=== PATIENT | male | born 1980 | race Caucasian/White ===

== ENCOUNTER 2017-02-17 18:05 | Emergency (ER) | payer SELFPAY ==
[2017-02-17] MEDS ORDERED: fentaNYL-PF 50 mCg/mL 2 mL Inj ONE (18:06)
[2017-02-17] MEDS ORDERED: Ondansetron 2 mg/mL 2 mL Inj ONE (18:07)
[2017-02-17] MEDS ORDERED: 0.9% Sodium Chloride 1,000 ML IV ONE (18:12)
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
[2017-02-17] MEDS ORDERED: Ondansetron 2 mg/mL 2 mL Inj IVPUSH ONE ×2 (18:15→18:25)
[2017-02-17] MEDS ORDERED: TdaP Vaccine 0.5 mL Inj IM ONE (18:15)
[2017-02-17 18:25] LABS: BASOPHILS % (AUTO) 0.7 % (0-3); EOSINOPHILS % (AUTO) 3.1 % (0-5); MONOCYTES % (AUTO) 7.6 % (4-12); Mean Corpuscular Hemoglobin 29.7 pg (27.0-35.0); Mean Corpuscular Volume 89.6 fL (81-100); NEUTROPHILS % (AUTO) 57.3 % (40-74); Platelet Count 134 bil/L (150-400)
[2017-02-17] MEDS ORDERED: fentaNYL-PF 50 mCg/mL 2 mL Inj IVPUSH ONE (18:25)
[2017-02-17 18:41] LABS: INR 1.09 ratio
[2017-02-17] MEDS: HYDROmorphone 1 mg/mL Inj IVPUSH PRN ×2 (18:44→19:16)
--- NOTE | 2017-02-17 18:51 | DRSVH ---
PROCEDURE: X-RAY RIGHT SHOULDER, MINIMUM TWO VIEWS ([id number]) INDICATIONS: pain TECHNIQUE: 3 views of the shoulder were acquired. COMPARISON: None. FINDINGS: Bones: No fractures or dislocations. No suspicious bony lesions. Visualized ribs appear intact. Soft tissues: No suspicious soft tissue calcifications. IMPRESSION: No fracture. No osseous lesion. If there are persistent symptoms or clinical suspicion f or pathology, then repeat radiographs or advanced imaging (CT, MRI or bone scan) should be considered for further evaluation. Dictated by: Yolanda Arita MD, PhD on 02/17/2017 at 18:49 Approved by: Yolanda Arita MD, PhD on 02/17/2017 at 18:50
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
--- NOTE | 2017-02-17 18:53 | DRSVH ---
PROCEDURE: X-RAY PELVIS, ONE OR TWO VIEWS ([id number]) INDICATIONS: trauma TECHNIQUE: One view(s) of the pelvis acquired. COMPARISON: None. FINDINGS: Bones: No fractures or dislocations. No suspicious bony lesions. Mild bilateral hip osteoarthritis noted. Soft tissues: Visualized bowel gas pattern is normal. No suspicious soft tissue calcifications. IMPRESSION: No fracture. No acute osseous lesion. If there are persistent symptoms or clinical suspi cion for pathology, then repeat radiographs or advanced imaging (CT, MRI or bone scan) should be cons idered for further evaluation. Dictated by: Yolanda Arita MD, PhD on 02/17/2017 at 18:51 Approved by: Yolanda Arita MD, PhD on 02/17/2017 at 18:51
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
[2017-02-17] MEDS ORDERED: Lactated Ringer's 1,000 ML IV SCH (19:37)
[2017-02-17] MEDS ORDERED: Ondansetron 2 mg/mL 2 mL Inj IVPUSH PRN (19:40)
--- NOTE | 2017-02-17 19:42 | DRSVH ---
PROCEDURE: CT CHEST, ABDOMEN AND PELVIS WITH CONTRAST ([id number]) INDICATIONS: trauma TECHNIQUE: After the administration of intravenous contrast, 5 mm thick sections acquired from the lung apices t o the symphysis. 5 mm thick coronal and sagittal reformats were acquired. Additional 7 mm thick cor onal maximum intensity projection (MIP) reformats acquired through the lungs. Optional 10-minute del ayed imaging may be performed from the kidneys to the bladder. For radiation dose reduction, the fol lowing was used: automated exposure control, adjustment of mA and/or kV according to patient size. COMPARISON: None. FINDINGS: Image quality: Excellent. CHEST: Lungs: No pulmonary contusions or lacerations. Atelectasis noted in the dependent portions of the reji ngs. No pneumothorax or hemothorax. Central and peripheral airways appear patent and normal in nikolai sharita. Mediastinum: No mediastinal hematomas. Heart size is normal. No pericardial effusion. Thoracic ao rta and pulmonary arteries demonstrate normal size and enhancement. No mediastinal or hilar adenopat hy. Esophagus is normal in caliber. No hiatal hernia. Chest wall: No rib fractures. No subcutaneous emphysema. No axillary or supraclavicular adenopathy . Thyroid gland is within normal limits where visualized. ABDOMEN: Solid organs: Liver and spleen are normal in enhancement, without lacerations. Pain and liver are en larged. Recanalization of the umbilical vein is noted suggestive of portal hypertension.. Gallbladd er is within normal limits. Biliary system is non-dilated. Pancreas enhances normally, without keen section. No adrenal hematomas. Both kidneys enhance normally, without hydronephrosis or lacerations . Peritoneum and bowel: Inflammatory changes noted in the fat adjacent to the celiac axis, the proxima l superior mesenteric artery and along the paracolic recesses of uncertain etiology. No free fluid o r air. Mildly dilated loops of proximal small bowel are noted to measure up to 3.7 cm in diameter. T here is circumferential wall thickening involving the duodenum which could be due to nondistention ve rsus posttraumatic injury. Nodes and vessels: No retroperitoneal or mesenteric adenopathy. Aorta and inferior vena cava are no rmal in size and enhancement. Miscellaneous: No ventral hernias. PELVIS: Genitourinary: Bladder wall thickness is normal. Miscellaneous: No inguinal hernias or adenopathy. Bones: Pelvic ring and hip joints appear intact. No vertebral compression fractures. Spine degener ative disease and facet arthropathy are noted. Left SI joint osteoarthritis noted. IMPRESSION: 1. Mild nonspecific inflammatory changes in the retroperitoneum all of the celiac and superior mesen teric arteries and extending along the paracolic gutter fascia bilaterally. 2. Mild dilatation of proximal loops of small bowel which could be related to ileus versus partial s mall bowel obstruction including partial small bowel obstruction related to bowel injury. 3. Mild circumferential wall thickening involving the second and third portions of duodenum. Trauma tic bowel injury cannot be excluded. 4. Hepatosplenomegaly with recanalization of the umbilical vein and superficial venous varices sugge stive of portal venous hypertension. 5. Findings telephoned to Dr. Aidan Dsouza on 02/17/2017 at 1937 hrs. Dictated by: Yolanda Arita MD, PhD on 02/17/2017 at 19:22 Approved by: Yolanda Arita MD, PhD on 02/17/2017 at 19:40
[2017-02-17] MEDS ORDERED: IBUP800T28 PO (20:28)
[2017-02-17 22:01] VITALS: BP 139/65; PULSE 94; RESP 14; O2SAT 96
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
== END 2017-02-17 22:04 | disposition home or self-care (01) ==
LOC: SED 18:05
DX: S00.03XA Contusion of scalp, initial encounter (principal); S30.811A Abrasion of abdominal wall, initial encounter; S40.211A Abrasion of right shoulder, initial encounter; S50.311A Abrasion of right elbow, initial encounter; S30.0XXA Contusion of lower back and pelvis, initial encounter; V58.6XXA Passenger in pick-up truck or van injured in noncollision transport accident in traffic accident, initial encounter; Y92.410 Unspecified street and highway as the place of occurrence of the external cause; Y93.89 Activity, other specified; Y99.8 Other external cause status; F10.220 Alcohol dependence with intoxication, uncomplicated; Y90.8 Blood alcohol level of 240 mg/100 ml or more; Z23 Encounter for immunization
CPT/HCPCS: 36415; 70450; 71010; 71260; 72125; 72170; 73030; 74177; 80053; 81002; 85025; 85610; 85730; 86850; 90471; 90715; 96361; 96374; 96375; 96376; 99285; G0480; J1170; J2405; J3010; J7030; J7120; Q9967

== ENCOUNTER 2017-05-19 07:10 | Inpatient (IN) | payer OTHER ==
[2017-05-19] VITALS (12 sets, daily range): BP systolic 100–158; BP diastolic 36–76; PULSE 98–113; RESP 16–20; O2SAT 99–100
[~2017-05-19] VITALS: Ht 182.9 cm; Wt 113.4 kg
[~2017-05-19 07:10] MED LIST: IBUP800T28 PO
[2017-05-19] MEDS ORDERED: 0.9% Sodium Chloride 1,000 ML IV ONE ×4 (07:30→16:45)
[2017-05-19] MEDS ORDERED: Pantoprazole 4 mg/mL 10 mL Inj IVPUSH ONE (07:30)
--- NOTE | 2017-05-19 07:30 | ED.REPORT ---
HPI-General Illness Date of Service May 19, 2017 ED Provider: Sarthak Sesay Patient is a 37 year old male with a hx of EtOH abuse who presents to the ED via EMS s/p his called reporting LOC. When medics arrived, he was unresponsive, had O2 sats from 77-80, and was covered in black vomit and feces. He was intubated and his sats josiah to the low 90's but has be consistently hypotensive. Per , he drinks half to a full fifth of whiskey daily. He may have taken 2 klonopin this morning and may have had a fever a few days ago for which he was taking Ibuprofen and Tylenol. No other history available upon initial evaluation secondary to his condition and being intubated. Nursing Notes Stated Complaint: GI BLEED Nursing Notes Reviewed: Yes Allergies: Coded Allergies: No Known Drug Allergies (Verified Allergy, Unknown, 02/17/17) Scheduled PRN Ibuprofen (Ibuprofen) 800 Mg Tablet 800 MG PO BID PRN PRN For Pain General Time Seen by MD: 07:29 Chief Complaint Other (LOC ) Hx Obtained From: Other family..., EMS Unable to Obtain Hx: Patient condition, Mental status Arrived By: Ambulance Context Related History: Reports Drug use/abuse suspected (EtOH ) Past Medical History Past Medical History Notes: History obtained from chart review the EMS, otherwise unable to obtain secondary to patient condition. Past Medical History Alcohol abuse Past Surgical History Unknown Smoking History Unknown if Ever Smoker Social History Alcohol Use: >5 per day Ambulatory Status Independent Unable to Obtain History Past medical history, Past surgical history, Family history, Smoking history, Social history, Occupation, Ambulatory status Review of Systems Unable to Obtain ROS Patient condition, Intubated Physical Exam Nursing note and vitals reviewed. Constitutional: Well-developed, well-nourished. Middle aged male. Intubated. Head: Normocephalic and atraumatic. Mouth/Throat: Mucous membranes dry. Endotracheal tube in place. Eyes: Unable to assess EOM. Pupils are 5mm and minimally responsive. Neck: Supple, no tracheal deviation. Cardiovascular: Tachycardic, regular rhythm. Poor peripheral perfusion, diminished DP/PT pulses bilaterally, good central pules. Pulmonary/Chest: Intubated, breath sounds present bilaterally but L diminished compared to R. Abdominal: Soft. No distension. Cannot appreciate any tenderness, though examination limited secondary to patient's condition. Bowel sounds present. Musculoskeletal: Not moving any extremities spontaneously. No obvious injuries. Neurological: GCS 3T, not responding to any stimuli whatsoever. Muscle tone normal. Not posturing. Skin: Pale, cool, and dry. Some scaling, which appears to be a chronic rash, on bilateral lower extremities. Psychiatric: Unable to assess secondary to patient condition Vital Signs Vital Signs Date Time Temp Pulse Resp B/P Pulse Ox O2 Delivery O2 Flow Rate FiO2 05/19/17 08:47 100 Please see vitals sheet for full details. HR 111, 157/82, Temp 37, RR 20. Sats 100%. Initial VS: Reviewed Interpretation & Diagnostics Lab Results Interpretation Result Diagram: 05/19/17 1400 05/19/17 0725 Test 05/19/17 07:25 05/19/17 08:32 05/19/17 08:55 Neutrophils (%) (Auto) 70.9% (40-74) Lymphocytes (%) (Auto) 20.7% (14-46) Monocytes (%) (Auto) 7.0% (4-12) Eosinophils (%) (Auto) 0.1% (0-5) Basophils (%) (Auto) 0.1% (0-3) Activated Partial Thromboplast Time 31.5sec (22.8-33.0) Fibrinogen 151mg/dL (157-380) Sodium Level 132mEq/L (134-144) Potassium Level 4.7mEq/L (3.5-5.2) Chloride Level 80mEq/L (97-108) Carbon Dioxide Level 12mmol/L (18-29) Blood Urea Nitrogen 59mg/dL (6-20) Creatinine 2.17mg/dL (0.76-1.27) Estimat Glomerular Filtration Rate 36mL/min (>59) Glucose Level 198mg/dL (60-99) Calcium Level 9.2mg/dL (8.5-10.1) Magnesium Level 1.5mg/dL (1.6-2.6) Total Bilirubin 2.3mg/dL (0.0-1.2) Aspartate Amino Transf (AST/SGOT) 336U/L (0-50) Alanine Aminotransferase (ALT/SGPT) 83U/L (0-44) Alkaline Phosphatase 104U/L (25-150) Troponin T 0.010ug/L (0.0-0.011) Total Protein 6.3g/dL (6.4-8.4) Albumin 3.3g/dL (3.4-5.0) Urine Color Yellow (YELLOW) Urine Appearance Cloudy (CLEAR,HAZY) Urine pH 5.0 (5.0-8.0) Urine Specific [place] 1.025 (1.003-1.035) Urine Protein 100mg/dL (NEG,TRACE) Urine Glucose (UA) Negativemg/dL (NEGATIVE) Urine Ketones 15mg/dL (NEGATIVE) Urine Occult Blood Moderate (NEGATIVE) Urine Nitrite Negative (NEGATIVE) Urine Bilirubin Small (NEGATIVE) Urine Ictotest Pos (Negative) Urine Urobilinogen 2.0mg/dL (NORMAL) Urine Leukocyte Esterase Negative (NEGATIVE) Urine RBC 3-10/hpf (0-2) Urine WBC 0-5/hpf (0-5) Urine Epithelial Cells Occasional/hpf (NONE-MOD) Urine Crystals Amorphous urates (NONE Urine Bacteria Few/hpf (NONE-FEW) Urine Hyaline Casts Occasional/lpf (NONE) Urine Granular Casts None seen (NONE SEEN) Urine Waxy Casts None seen (NONE SEEN) Urine Red Blood Cell Casts None seen (NONE SEEN) Urine White Blood Cell Casts None seen (NONE SEEN) Urine Mucus Present (None Seen) Urine Trichomonas None seen (NONE SEEN) Urine Yeast None (NONE SEEN) Urinalysis Comment None Urine Culture Reflexed Not indicated Hold Purple Top Tube Received (Received) Hold [place] Top Tube Received (Received) ECG Interpretation ECG Interpretation: Sinus tachycardia, rate 110 Time: 09:49 Interpreted by: ED physician ABG Interpretation ABG Interpretation: pH 7.278 pCO2 31 pO2 82.0 cHCO3- 14.5 Exam Performed by: [facility] pract Exam Interpreted by: ED physician X-Ray Chest Interpretation Chest Xray Interpretation: IMPRESSION: Ne ET tube tip in expected position. Dictated by: Kwame De La Torre M.D. on 05/19/2017 at 8:48 Approved by: Kwame De La Torre M.D. on 05/19/2017 at 8:49 View: Portable, 1 view Interpretation / Wet Read by: Interpret - Radiologist CT Head Interpretation IMPRESSION: No CT evidence of acute intracranial pathology. Dictated by: Kwame De La Torre M.D. on 05/19/2017 at 8:59 Approved by: Kwame De La Torre M.D. on 05/19/2017 at 9:02 Study: Head CT no contrast Interpretation / Wet Read by: Interpret - Radiologist CT Abd / Pelvis Interpretation IMPRESSION: 1. Worsening hepatosplenomegaly and worsening portal hypertension, in this patient with prior evidence of portal hypertension during CT scanning 02/17/17. No ascites is found, however, and no definite malignancy is identified. 2. A colonic mass or other source of GI bleeding is not identified. However, given the portal hypertension present bleeding varicosities would be a likely potential source. 3. The liver is prominently heterogeneous, in a pattern suggestive of significant interval worsening of fatty infiltration, with an unusual multinodular pattern of what appears to be fatty infiltration in several portions of the liver. Underlying acute hepatitis may be superimposed. The likelihood of malignancy as cause of this appearance is considered low but remains possible (yet unlikely). Dictated by: Salty Daniel M.D. on 05/19/2017 at 9:08 Approved by: Salty Daniel M.D. on 05/19/2017 at 9:18 Study type: Abdominal CT IV contrast Interpretation / Wet Read by: Interpret - Radiologist Re-Eval/Medical Decision Med Decision/Clinical Course In summary, 37-year-old male with a suspected history of alcohol abuse per EMS and chart review presenting to the ED for evaluation after being found minimally responsive and covered in dark emesis. Obvious concern for GI bleed, however unknown source at this time. Concern for esophageal varices given his known history of alcohol abuse, however could be another intra-abdominal source. He has also been retching and esophageal rupture is a possibility, however bedside chest x-ray does not demonstrate findings consistent with this. Pupils sluggish, however unclear the relationship between this and recent administration of paralytic. Head CT negative for acute bleed. Upon patient's arrival, mass transfusion protocol initiated. Multiple large-bore IVs were obtained and resuscitation with packed red blood cells, FFP, and platelets started. Initial laboratory studies notable for hemoglobin of 5.1, hematocrit of 16.2, platelets of 99, sodium of 132, chloride of 80, anion gap of 40, creatinine of 2.17, BUN 59, magnesium 1.5, bilirubin 2.3, AST 336, ALT 83, troponin negative, white blood cell count of 20.8, INR 2.01, fibrinogen 151. CT of the patient's abdomen and pelvis was obtained and demonstrated worsening hepatosplenomegaly and worsening portal hypertension, with no obvious source of GI bleeding; rest of read as per above. Upon patient's arrival, GI consulted as per below; appreciate recommendations. After discussion with GI, decision made to admit the patient and take him directly to the endoscopy suite for attempted direct visualization of bleeding. Discussed with the critical care also discussed with the critical care team, who will admit the patient after endoscopy for further management and evaluation. Time of Eval: 07:51 Re-Evaluation/Progress Note: Rechecked pt to assess proper sedation. He is now opening his eyes upon verbal command. Time of Eval: 08:12 Re-Evaluation/Progress Note: Rechecked pt. His color is beginning to return. Time of Eval: 08:48 Re-Evaluation/Progress Note: Rechecked pt who is improving. Anesthesia in room. Discussed plan for admission. Patient is informed. Consultation #1: Referral / Consult Name: Stef Shin MD Call Returned at: 07:37 Note: Discussed pt's case with GI. Will come in to see pt later. Consultation #2: Referral / Consult Name: Stef Shin MD Call Returned at: 08:15 Note: Discussed pt's case with GI to give more information. Is en route to see pt. Consultation #3: Referral / Consult Name: Stef Shin MD Call Returned at: 08:25 Note: Discussed pt's case after GI evaluated pt. Consultation #4: Referral / Consult Name: Malachi Jolly MD Consulted With: Hospitalist Call Returned at: 09:32 Manager Analysis: Will see patient, Agrees with eval, Agrees with plan, Accepts admit Note: Discussed pt's case. Accepts admit. Discharge & Departure Primary Impression: GI bleed GI bleed type/associated pathology: unspecified gastrointestinal hemorrhage type Qualified Code: K92.2 - Gastrointestinal hemorrhage, unspecified Additional Impressions: Acute kidney injury Acute blood loss anemia Transaminitis High anion gap metabolic acidosis Disposition: ADMITTED TO HOSPITAL Discharge Condition All VS Reviewed: Yes Condition: Critical Referrals: NOPCP (PCP) Crit Care Except Billable Proc Time Spent: 135-164 minutes Services Performed: Patient management by me, Time spent at bedside, Reviewing test results, Reviewing imaging, Discussing patient care, Documentation in record, Time with fam/surrogate Critical Care Notes: Please see MDM. Scribe Attestation Portions of this note were transcribed by Consuelo Beebe. Dr. Lázaro Modi personally performed the history, physical exam and medical decision-making; I reviewed and confirmed the accuracy of the information in the transcribed note. Signed by: Doroteo Varela, 05/19/17 Sarthak Sesay MD May 19, 2017 07:30 CONSUELO BEEBE May 19, 2017 07:43 Consultation #1: Referral / Consult Name: Stef Shin MD Call Returned at: 07:37 Note: Discussed pt's case with GI. Will come in to see pt later. Consultation #2: Referral / Consult Name: Stef Shin MD Call Returned at: 08:15 Note: Discussed pt's case with GI to give more information. Is en route to see pt. Consultation #3: Referral / Consult Name: Stef Shin MD Call Returned at: 08:25 Note: Discussed pt's case after GI evaluated pt. Consultation #4: Referral / Consult Name: Malachi Jolly MD Consulted With: Hospitalist Call Returned at: 09:32 Manager Analysis: Will see patient, Agrees with eval, Agrees with plan, Accepts admit Note: Discussed pt's case. Accepts admit. Counseled Regarding: Diagnosis, Lab results, Need for admission Discharge & Departure Primary Impression: GI bleed GI bleed type/associated pathology: unspecified gastrointestinal hemorrhage type Qualified Code: K92.2 - Gastrointestinal hemorrhage, unspecified Additional Impressions: Acute kidney injury Acute blood loss anemia Transaminitis High anion gap metabolic acidosis Disposition: ADMITTED TO HOSPITAL Discharge Condition All VS Reviewed: Yes Condition: Stable Referrals: NOPCP (PCP) Crit Care Except Billable Proc Time Spent: 135-164 minutes Services Performed: Patient management by me, Time spent at bedside, Reviewing test results, Reviewing imaging, Discussing patient care, Documentation in record, Time with fam/surrogate Scribe Attestation Portions of this note were transcribed by Consuelo Beebe. Dr. Lázaro Modi personally performed the history, physical exam and medical decision-making; I reviewed and confirmed the accuracy of the information in the transcribed note. Signed by: Doroteo Varela, 05/19/17 Sarthak Sesay MD May 19, 2017 07:30 CONSUELO BEEBE May 19, 2017 07:43
[2017-05-19 07:43] LABS: BASOPHILS % (AUTO) 0.1 % (0-3); EOSINOPHILS % (AUTO) 0.1 % (0-5); Mean Corpuscular Hemoglobin 28.2 pg (27.0-35.0); Mean Corpuscular Volume 89.5 fL (81-100); NEUTROPHILS % (AUTO) 70.9 % (40-74); Platelet Count 99 bil/L (150-400)
[2017-05-19] MEDS ORDERED: Ketamine 100 mg/mL 5 mL Inj IV ONE ×2 (07:45→08:10)
[2017-05-19] MEDS ORDERED: Ketamine 10 mg/mL 20 mL Inj ONE (07:46)
[2017-05-19 07:49] LABS: INR 2.01 ratio
[2017-05-19] MEDS ORDERED: Octreotide 500 mCg/100 mL NS IV SCH ×2 (07:50)
--- NOTE | 2017-05-19 07:52 | ABG ---
DateTimeAnalyzed 07:41:26 -_ pH ____7.278 - 7.350 7.450 pCO2 ___30.9__ -mmHg 35.0 45.0 pO2 ___82.0__ -mmHg 69.0 116 HCO3- ___14.5__ -mmol/L 22.0 26.0 ABE __-11.3__ -mmol/L -2.0 2.0 tHb ____5.0__ -g/dL 12.0 18.0 O2Hb ___49.2__ -% COHb ____2.1__ -% 0.0 1.5 MetHb ____0.3__ -% 0.4 1.5 sO2 ___50.4__ -% FIO2 __100.0__ -% PRVC 16 - PEEP ____5.0__ -cmH2O Set_RR 16 -b/min Vt __600.0__ -L Drawn By MM - Date/Time Notified____ 07:51:00 -_ Spontaneous_RR 22 -b/min Oxygen Device 1 VENTILATOR - Notified By MM - Notified Whom DR NASH - K+ ____4.3__ -mmol/L 3.5 5.0 tO2 ____3.6__ -Vol% Malachi test N/A -
[2017-05-19 07:53] LABS: Mean Corpuscular Hemoglobin 27.6 pg (27.0-35.0)
[2017-05-19 07:54] LABS: BASOPHILS % (AUTO) 0.1 % (0-3); EOSINOPHILS % (AUTO) 0 % (0-5); MONOCYTES % (AUTO) 8.6 % (4-12); Platelet Count 100 bil/L (150-400)
[2017-05-19] MEDS ORDERED: fentaNYL-PF 50 mCg/mL 2 mL Inj ONE ×2 (07:55→11:03)
[2017-05-19] MEDS ORDERED: fentaNYL-PF 50 mCg/mL 2 mL Inj IVPUSH ONE (08:10)
[2017-05-19 08:28] LABS: Magnesium 1.5 mg/dL (1.6-2.6); TROPONIN T 0.01 ug/L (0.0-0.011)
--- NOTE | 2017-05-19 08:51 | DRSVH ---
PROCEDURE: X-RAY CHEST ONE VIEW, PORTABLE ([id number]) INDICATIONS: gi bleed, unresponsive TECHNIQUE: One view of the chest was acquired. COMPARISON: [facility], CR, XR CHEST 1VW (PORTABLE), 02/17/2017, 18:11. FINDINGS: Surgical changes and devices: Interval intubation with ET tube tip 5 CM above the ag. Lungs and pleura: No pleural effusions or pneumothorax. Lungs are clear. Mediastinum: Mediastinal contours appear normal. Heart size is normal. Bones and chest wall: No suspicious bony lesions. Overlying soft tissues appear unremarkable. IMPRESSION: Ne ET tube tip in expected position. Dictated by: Kwame De La Torre M.D. on 05/19/2017 at 8:48 Approved by: Kwame De La Torre M.D. on 05/19/2017 at 8:49
--- NOTE | 2017-05-19 09:03 | DRSVH ---
PROCEDURE: CT BRAIN WITHOUT CONTRAST ([id number]) INDICATIONS: unresponsive, pupils sluggish TECHNIQUE: Noncontrast 4.5 mm thick angled axial sections acquired from the foramen magnum to the vertex, with c oronal reformats. COMPARISON: [facility], CT, CT BRAIN WO CON, 02/17/2017, 18:47. FINDINGS: Image quality: Excellent. CSF spaces: Basal cisterns are patent. No extra-axial fluid collections. Ventricles are normal in size and shape. Brain: No midline shift. No intracranial masses or hemorrhage. Allan-white matter interface is norm al. Skull and face: Calvarium and visualized facial bones are intact, without suspicious lesions. Sinuses: Visualized sinuses and mastoids are clear. IMPRESSION: No CT evidence of acute intracranial pathology. Dictated by: Kwame De La Torre M.D. on 05/19/2017 at 8:59 Approved by: Kwame De La Torre M.D. on 05/19/2017 at 9:02
[2017-05-19 09:04] LABS: COLOR,URINE YELLOW (YELLOW)
[2017-05-19 09:05] LABS: APPEARANCE,URINE CLOUDY (CLEAR,HAZY); OCCULT BLOOD,URINE MODERATE (NEGATIVE)
[2017-05-19 09:06] LABS: ICTOTEST,URINE POS (Negative)
--- NOTE | 2017-05-19 09:19 | DRSVH ---
PROCEDURE: CT ABDOMEN AND PELVIS WITH CONTRAST ([id number]) INDICATIONS: gi bleed unresponsive TECHNIQUE: After the administration of intravenous contrast, 5 mm thick sections acquired from the diaphragm to the symphysis. 5 mm coronal and sagittal reformats were acquired. For radiation dose reduction, the following was used: automated exposure control, adjustment of mA and/or kV according to patient siz e. COMPARISON: [facility], CT, CT CHEST ABD PELVIS W CON, 02/17/2017, 18:47. FINDINGS: Image quality: Excellent. ABDOMEN: Lung bases: Lung bases are clear except for bibasilar atelectasis. Heart size is normal. Solid organs: Liver and spleen are abnormal in size and enhancement. With reference to the prior CT scan from 02/17/17 both the liver and spleen had a further enlarged, with a craniocaudad length of th e spleen now up to 14.6 cm versus 13.7 cm previously and measured in the same area. The global enlar gement of the liver has progressed, and the hepatic enhancement is prominently heterogeneous, with a pattern considered more likely to represent progression of prominent fatty infiltration. However, th ere are areas of patchy nodular low attenuation that conceivably could represent superimposed metasta tic disease or diffuse hepatic neoplasm (but this is considered to be much less likely than an unusua l appearance of heterogeneous fatty infiltration). Portal hypertension appears to have worsened between the 2 studies, with the distended periumbilical vein tracking inferiorly to the posterior margin of the umbilicus, with these varicosities further en larged from the comparison study. For example, in an area where the enlarged paraumbilical vein had measured 8 mm it now measures 12 mm. Additional further enlargement of varices in the retroperitoneu m and along the body wall anteriorly is evident. However, only a slight amount of free fluid is foun d. Gallbladder does not show evidence of internal calcified gallstones. Biliary system is non dilated. Pancreas enhances normally but there is a small amount of nearby mild stranding in the retroperitone al fat potentially a manifestation of associated pancreatitis. No adrenal nodules. Kidneys demonstr ate normal size and enhancement, without hydronephrosis. Peritoneum and bowel: Bowel loops demonstrate normal wall thickness and caliber. No free fluid or a ir. Nodes and vessels: No retroperitoneal or mesenteric adenopathy by size criteria. Aorta and inferior vena cava are normal in size. Miscellaneous: No ventral hernias. PELVIS: Genitourinary: Bladder wall thickness is normal. A Scott catheter largely empties the bladder lumen . Miscellaneous: No inguinal hernias or adenopathy. Enlarged varicosities within the anterior body wa ll and peritoneal space as was seen within the abdomen more superiorly. Bones: No suspicious bony lesions. No vertebral body compression fractures. IMPRESSION: 1. Worsening hepatosplenomegaly and worsening portal hypertension, in this patient with prior eviden ce of portal hypertension during CT scanning 02/17/17. No ascites is found, however, and no definite malignancy is identified. 2. A colonic mass or other source of GI bleeding is not identified. However, given the portal hyper tension present bleeding varicosities would be a likely potential source. 3. The liver is prominently heterogeneous, in a pattern suggestive of significant interval worsening of fatty infiltration, with an unusual multinodular pattern of what appears to be fatty infiltration in several portions of the liver. Underlying acute hepatitis may be superimposed. The likelihood o f malignancy as cause of this appearance is considered low but remains possible (yet unlikely). Dictated by: Salty Daniel M.D. on 05/19/2017 at 9:08 Approved by: Salty Daniel M.D. on 05/19/2017 at 9:18
[2017-05-19] MEDS ORDERED: cefTRIAXone Inj 2,000 MG in Dextrose 5% Minibag Plus 50 ML IV ONE (09:35)
--- NOTE | 2017-05-19 09:48 | PCM.HPANE ---
Patient Data Date of Service: May 19, 2017 Surgeon Admitting Provider: Attending Provider: Primary Care Physician:Nopcp Other Provider: Reason for Visit Gi Bleed Ht/WT & BMI Height (Feet): 6 Height (Inches): 4 Body Mass Index Allergies Coded Allergies: No Known Drug Allergies (Verified Allergy, Unknown, 02/17/17) Diabetes History Hx Diabetes?: No MRSA MRSA: No Medications Hypertension Medication: No Home Meds Incl Beta Deo: No Reported Medications Ibuprofen 800 Mg [id number] Mg PO BID PRN For Pain 02/17/17 History History of ENT Problems?: No Denture Type: None Teeth Condition: Within Normal Limits Hx of Heart Problems?: No Cardiovascular History: Denies:: Coronary Artery Disease Hx of Respiratory Problem?: No Hx Neurologic Problems?: No Gastrointestinal History: Positive for:: Gastrointestinal Bleeding (active, acute) Liver Disease (acute transaminitis) Hx of Problems?: No Hx Musculoskeletal Problems?: No Hx Any Other Health Problems?: Yes (EtOH intoxicatoin) History Blood Transfusions: Positive for:: Blood Transfusions (massive transfusion protocol this am for severe, acute GI bleed) Hx Diabetes: No Hx Alcohol Use: Yes (5th of whiskey qd) Smoking Status: Current Every Day Smoker (1/2 ppd) Have You Smoked inLast 12 mo: YesApprox How Many Cigarettes/day: 5-10 Stop/Bang Treated for Sleep Apnea?: No Do You Have a CPAP Machine?: No VALENTIN Risk Assessment: Low Risk, <3 Yes Risk Assessment Category Category 1A: Patient has history of documented sleep apnea, and HAS NOT received any narcotic, sedative or anesthesia administration during this stay. Category 1B: Patient has history of documented sleep apnea, and HAS received any narcotic , sedative or anesthesia administration during this stay Category 2: Patient has SUSPECTED Obstructive Sleep Apnea, and HAS received any narcotic , sedative or anesthesia administration during this stay. Category 3: Patient has SUSPECTED Obstructive Sleep Apnea and HAS NOT received narcotic, sedative or anesthesia administration during this stay. Category 4: Outpatient in Procedural Areas with known sleep apnea or who screen positive for High Risk via the STOP/BANG questionnaire. Additional Information intubated, unable to assess Exam Exam Vital Signs Vital Signs Date Time Temp Pulse Resp B/P Pulse Ox O2 Delivery O2 Flow Rate FiO2 05/19/17 08:47 100 General Appearance: Other (intubated in ED, sedated) HEENT/AIRWAY: Other (intubated, 8.0 ETT, 26cm at teeth) Meds/Labs/Diagnostics Labs Test 05/19/17 07:25 05/19/17 08:32 05/19/17 08:55 White Blood Count 20.8th/mm3 (3.8-10.1) Red Blood Count 1.81mil/mm3 (4.40-5.80) Hemoglobin 5.1g/dL (13.8-17.2) Hematocrit 16.2% (41.0-50.0) Mean Corpuscular Volume 89.5fL (81-100) Mean Corpuscular Hemoglobin 28.2pg (27.0-35.0) Mean Corpuscular Hemoglobin Concent 31.5% (32.0-37.0) Red Cell Distribution Width 20.4% (12.3-15.4) Platelet Count 99bil/L (150-400) Neutrophils (%) (Auto) 70.9% (40-74) Lymphocytes (%) (Auto) 20.7% (14-46) Monocytes (%) (Auto) 7.0% (4-12) Eosinophils (%) (Auto) 0.1% (0-5) Basophils (%) (Auto) 0.1% (0-3) Prothrombin Time 21.8sec (8.1-12.5) Prothromb Time International Ratio 2.01ratio Activated Partial Thromboplast Time 31.5sec (22.8-33.0) Fibrinogen 151mg/dL (157-380) Sodium Level 132mEq/L (134-144) Potassium Level 4.7mEq/L (3.5-5.2) Chloride Level 80mEq/L (97-108) Carbon Dioxide Level 12mmol/L (18-29) Blood Urea Nitrogen 59mg/dL (6-20) Creatinine 2.17mg/dL (0.76-1.27) Estimat Glomerular Filtration Rate 36mL/min (>59) Glucose Level 198mg/dL (60-99) Calcium Level 9.2mg/dL (8.5-10.1) Magnesium Level 1.5mg/dL (1.6-2.6) Total Bilirubin 2.3mg/dL (0.0-1.2) Aspartate Amino Transf (AST/SGOT) 336U/L (0-50) Alanine Aminotransferase (ALT/SGPT) 83U/L (0-44) Alkaline Phosphatase 104U/L (25-150) Troponin T 0.010ug/L (0.0-0.011) Total Protein 6.3g/dL (6.4-8.4) Albumin 3.3g/dL (3.4-5.0) Urine Color Yellow (YELLOW) Urine Appearance Cloudy (CLEAR,HAZY) Urine pH 5.0 (5.0-8.0) Urine Specific [place] 1.025 (1.003-1.035) Urine Protein 100mg/dL (NEG,TRACE) Urine Glucose (UA) Negativemg/dL (NEGATIVE) Urine Ketones 15mg/dL (NEGATIVE) Urine Occult Blood Moderate (NEGATIVE) Urine Nitrite Negative (NEGATIVE) Urine Bilirubin Small (NEGATIVE) Urine Ictotest Pos (Negative) Urine Urobilinogen 2.0mg/dL (NORMAL) Urine Leukocyte Esterase Negative (NEGATIVE) Urine RBC 3-10/hpf (0-2) Urine WBC 0-5/hpf (0-5) Urine Epithelial Cells Occasional/hpf (NONE-MOD) Urine Crystals Amorphous urates (NONE Urine Bacteria Few/hpf (NONE-FEW) Urine Hyaline Casts Occasional/lpf (NONE) Urine Granular Casts None seen (NONE SEEN) Urine Waxy Casts None seen (NONE SEEN) Urine Red Blood Cell Casts None seen (NONE SEEN) Urine White Blood Cell Casts None seen (NONE SEEN) Urine Mucus Present (None Seen) Urine Trichomonas None seen (NONE SEEN) Urine Yeast None (NONE SEEN) Urinalysis Comment None Urine Culture Reflexed Not indicated Plan Impression Patient chart reviewed, patient interviewed and anesthestic plan with risks, benefits, and alternatives discussed, and informed consent obtained. NPO per Anesth. Guidelines: No (n/a. intubated, emergency) ASA Physical Status: ASA3 Plus Emergency Anesthetic Plan: GA Bene/Risks/Altern/Consents: Yes HP Complete Prior to Induction: Yes Rene Manzano DO May 19, 2017 09:48
[2017-05-19 10:52] LABS: Mean Corpuscular Hemoglobin 28.3 pg (27.0-35.0); Mean Corpuscular Volume 85.9 fL (81-100)
[2017-05-19] MEDS ORDERED: Rocuronium 10 mg/mL 5 mL Inj ONE ×2 (11:03→11:13)
[2017-05-19] MEDS ORDERED: Phenylephrine/NS 100 mCg/mL 10 mL Syringe IVPUSH ONE (11:03)
[2017-05-19] MEDS ORDERED: Propofol 10,000 mCg/mL 20 mL Inj ONE (11:03)
[2017-05-19] MEDS ORDERED: Succinylcholine Chloride 20 mg/mL 5 mL Inj ONE (11:13)
[2017-05-19] MEDS ORDERED: Alum-Mag Hydrox-Simeth 30 mL Suspension PO PRN (11:30)
[2017-05-19] MEDS ORDERED: Polyethylene Glycol (PEG) 17 Gm Powder PO PRN (11:30)
[2017-05-19] MEDS ORDERED: Ondansetron 2 mg/mL 2 mL Inj IVPUSH PRN (11:30)
[2017-05-19] MEDS ORDERED: Senna-Docusate 8.6-50 mg Tablet PO PRN (11:30)
[2017-05-19] MEDS ORDERED: Pantoprazole Inj 80 MG in 0.9% Sodium Chloride 100 ML IV ONE (11:40)
[2017-05-19] MEDS ORDERED: Octreotide Inj 500 MCG in 0.9% Sodium Chloride 99 ML IV SCH (11:40)
[2017-05-19] MEDS ORDERED: Pantoprazole Inj 80 MG in 0.9% Sodium Chloride 80 ML IV SCH (11:40)
--- NOTE | 2017-05-19 11:59 | PCM.HPMED ---
Subjective Date of Service May 19, 2017 Primary Provider: Admitting Physician: Malachi Jolly MD Primary Care Physician: Nopcp Attending Physician: Stef Shin MD Chief Complaint: GI bleed History of Present Illness: 37 year old male with hx of alcohol abuse presented to the ED via EMS after being found down, covered in black/red vomit and stool by his this morning. Pt regularly drinks 1/2 to a fifth of whiskey daily and reportedly has been for some time. There is very little information available and [facility] is similarly unhelpful. He does have a script for Ibuprofen. In any case, when EMS arrived they reported that the patient was hypotensive and sats were in the upper 70's. Due to hypoxia the patient was intubated in the field.on presentation to the ED the patient remained obtunded and hemoglobin returned at 5. He also looked dehydrated. He was transfused 5units PRBC's, 2 units FFP, and [address] Shin was contacted for emergent endoscopy. The patient was taken to the OR for the procedure and Dr. Shin reports that he identified dieulafoy in the proximal body of the stomach. Pt was also started on protonix and octreotide. He was admitted to the ICU intubated and sedated on propofol. No fentanyl at this time. Versed was initially attempted in the ED/OR but ineffective Review of Systems: A complete review of systems unable to be performed due to patient sedation Allergies Coded Allergies: No Known Drug Allergies (Verified Allergy, Unknown, 02/17/17) Home Medications Ibuprofen (Ibuprofen) 800 Mg Tablet 800 MG PO BID PRN PRN For Pain PMH Alcohol abuse Surgical History Unable to obtain due to sedation Family History Unable to obtain due to sedation Social History Hx Alcohol Use: Yes (5th of whiskey qd) Smoking Status: Current Every Day Smoker (1/2 ppd) Exam Vital Signs Vital Sign - Last Date Time Temp Pulse Resp B/P Pulse Ox O2 Delivery O2 Flow Rate FiO2 05/19/17 08:47 100 Exam General: Sedated but responsive to voice HEENT: Pupils equal and reactive, no tracking, opens eyes on command, thyroid normal, neck brace in place Lymph: No lymphadenopathy Cardio: Regular rhythm, tachycardia, no murmurs Respiratory: Intubated, CTA bilaterally Abdomen: Mildly distended but soft abdomen, with positive bowel sounds Extremity: Large red rash on the right lower extremity with the appearance of ringworm; Similar smaller rashes on her left leg; no edema Psych: Sedated Neuro: Sedated Skin: Rashes above Lab and Diagnostics Result Diagram: 05/19/17 1035 05/19/17 0725 X-Rays, CTs and MRIs Chest x-ray IMPRESSION: New ET tube tip in expected position. Dictated by: Kawme De La Torre M.D. on 05/19/2017 at 8:[address] 1. Worsening hepatosplenomegaly and worsening portal hypertension, in this patient with prior evidence of portal hypertension during CT scanning 02/17/17. No ascites is found, however, and no definite malignancy is identified. 2. A colonic mass or other source of GI bleeding is not identified. However, given the portal hypertension present bleeding varicosities would be a likely potential source. 3. The liver is prominently heterogeneous, in a pattern suggestive of significant interval worsening of fatty infiltration, with an unusual multinodular pattern of what appears to be fatty infiltration in several portions of the liver. Underlying acute hepatitis may be superimposed. The likelihood of malignancy as cause of this appearance is considered low but remains possible (yet unlikely). Dictated by: Salty Daniel M.D. on 05/19/2017 at 9:[address] IMPRESSION: No CT evidence of acute intracranial pathology. Dictated by: Kwame De La Torre M.D. on 05/19/2017 at 8:59 12-lead ECG Sinus tach at [address] changes. Assessment & Plan 37 year old male with hx of alcohol abuse and ibuprofen abuse who presented obtunded to the ED from home after being found down, hypoxic, and covered in black/red emesis. Acute hypoxic respiratory failure; POA; ongoing -Likely due to alcohol and acute blood loss causing syncope -Ventilated and managed by pulmonology Severe Acute GI bleed; POA; ongoing -Patient found down with red/black emesis and stool -Hx of severe Etoh abuse and NSAIDs -Hgb was 5 on admission -Octreotide and protonix drips -No NG at this time -Emergent endoscopy with injection of possible dieulafoy in the proximal body of the stomach -H/H q6 until tomorrow morning -transfuse below 7 Acute kidney injury; POA; ongoing -Likely due to acute blood loss and dehydration leading to prerenal azotemia -CK elevated but less than 1000 -aggressive hydration Severe anion gap metabolic acidosis; POA; ongoing -Elevated lactic acidosis with TAMMIE -Fluids -Trend lactate Alcoholic hepatitis with cirrhosis; POA; ongoing -Elevated transaminases and alcoholic pattern and prolonged PT on admission -Small ascites and portal hypertension on CT with history of alcohol dependence -CIWA ordered -Thiamine 300 mg now and 200 daily starting tomorrow -Full evaluation of sequelae negative Hyperglycemia; POA; ongoing -No history of diabetes blood sugars 190+; questionable if due to stress reaction -Regular 6 units Q8 Alcohol dependence; POA; ongoing -Reportedly drinks half to a full fifth foreskin a day -Ray taken two Klonopin this morning as well -Thiamine 300 mg now and 200 daily starting tomorrow Disposition: Patient is being admitted to inpatient status with expected length of stay greater than two midnights due to to severity of presentation, duration of treatment, and risks of adverse events disposition Full code Pain Evaluation: Adequate Pain Control GI Prophylaxis: Proton Pump Inhibitor (GGT) VTE Prophylaxis Indicated: Contraindicated Resuscitation Status: CPR: Attempt Resuscitation Time spent 60 minutes Attending Statement The patient was seen and examined together with on May 19 and I agree with the history, exam findings, and plan as outlined in the note above. I did participate in all aspects of the services provided today, including documentation and the plan of care. The patient will remain intubated tonight for airway protection. We will follow the hematocrit carefully and transfuse as needed to maintain a hematocrit of over 21. The patient will be placed on a Versed drip if he becomes agitated consistent with alcohol withdrawal. Deniz Mccollum DO May 19, 2017 11:59 Malachi Jolly MD May 20, 2017 15:50
[2017-05-19] MEDS: Pantoprazole 8 mg/Hr Infusion IV SCH ×4 (12:04→16:19)
[2017-05-19] MEDS ORDERED: Thiamine Inj 300 MG in Dextrose 5% 50 ML IV ONE (12:10)
[2017-05-19] MEDS: 0.9% Sodium Chloride 1,000 ML IV SCH ×3 (12:17→23:13)
[2017-05-19] MEDS: Propofol Inj 1,000,000 MCG in IV Premix 1 EACH IV PRN ×2 (12:18→15:54)
--- NOTE | 2017-05-19 12:32 | ABG ---
DateTimeAnalyzed 12:25:00 -_ pH ____7.426 - 7.350 7.450 pCO2 ___45.2__ -mmHg 35.0 45.0 pO2 ___29.7__ -mmHg 69.0 116 HCO3- ___29.2__ -mmol/L 22.0 26.0 ABE ____4.8__ -mmol/L -2.0 2.0 tHb ____8.3__ -g/dL 12.0 18.0 O2Hb ___54.2__ -% COHb ____1.3__ -% 0.0 1.5 MetHb ____0.9__ -% 0.4 1.5 sO2 ___55.4__ -% 25.0 FIO2 __100.0__ -% PEEP ____5.0__ -cmH2O Set_RR ___16.0__ -b/min Vt __600.0__ -L Drawn By as - Date/Time Notified____ 12:31:00 -_ Spontaneous_RR ___16.0__ -b/min Oxygen Device 1 VENTILATOR - Notified By ams - Notified Whom dr Parimi - B 761 -mmHg tO2 ____6.3__ -Vol% Malachi test _Positive -
--- NOTE | 2017-05-19 12:52 | PCM.CHPMED ---
Subjective Date of Service: May 19, 2017 Provider requesting consult: Malachi Jolly MD Primary Physician: Admitting Physician: Malachi Jolly MD Primary Care Physician: Nopcp Attending Physician: Stef Shin MD Admit Status: From the Emergency Department Chief Complaint: Chief Complaint: Acute GI bleed, and loss of consciousness History of Present Illness: Pulmonology and critical care consult note: Reason for consult: Intubated and sedated ICU patient. Requesting physician: Malachi Babcock M.D., Deniz Vega DO History obtained from current hospital records and [facility] as patient is intubated and stopped unable to give history Mr. Frank is a 37-year-old male with past medical history of alcohol abuse ( drinks 1/2 to full fifth of whiskey daily), as well as severe bilateral lower extremity tinea corporis , and no other chronic medical conditions [facility] record. Patient has no outside PCP according to the [facility] record. Patient has history of Ibuprofen, and Tylenol use as well as history of a prior shoulder strain in July 2014. History is limited secondary to lack of family member present and sedated/ intubated patient. Patient presented to the ED via EMS secondary after being found down by his . When EMS arrived on scene patient was reportedly unresponsive, with oxygen sats 77-80. The patient was per one report covered in black vomit and feces, and per another covered in red bloody vomit. Patient was intubated on scene and his oxygen saturation quickly recovered, however patient remained hypotensive. Patient reportedly may have consumed up to 2 Klonopin this morning as well. In the ED: There was concern for active GI bleed given H/H of 02/14, and he was transfused 5 units PRBC's. He was reportedly conscious in interacting to verbal commands with ED staph. Vital signs showed patient's tachycardic 111, blood pressure 158/72 with a map of 100, pulse ox 100% on 100% oxygen. The patient's hemogram showed the patient was severely and likely acutely anemic with H&H of 5.10/17 Patient then received 5 units of packed RBCs, 2 units of FFP and 2 units of platelets. Patient's repeat H&H showed a hemoglobin of 8/24.3. Patient had a leukocytosis of 20.2 with normal differential. Platelet count was 40, and is now 89 on most recent lab. Coagulation studies include PT 21.8, INR 2.01, APTT 31.5, fibrinogen 151 UA was significant for moderate amount of occult blood, positive Ictotest, and uric crystals with few bacteria. CT of the brain: No CT evidence of acute intracranial pathology. CT abdomen and pelvis: Showed worsening hepatosplenomegaly and worsening portal hypertension, with prior evidence of portal hypertension from CT scan 2016. No ascites were found, and no definitive evidence of malignancy. No colonic or GI mass seen. No bleeding varicosities. Findings consistent with worsening fatty liver, with possibility of superimposed acute hepatitis. GI Dr. Shin was consulted by the ED physician secondary to acute blood loss anemia requiing mass transfution protocol and hx of ETOH abuse. The patient was taken immediately for upper endoscopy which showed dieulafoy lesion of the gastric body that was activly bleeding and required epinephrine injection. No signs of esophageal varices were present on endoscopy. No masses were reportedly seen. Patient was placed on IV pantoprazole, and octreotide. Patient presently is in the ICU intubated and sedated on propofol. Review of Systems: Complete review of systems was not performed secondary to sedated and intubated patient. PMH Past Medical History EtOH abuse with averaging 1/2 to a full fifth of whiskey per day History of tinea corporis History shoulder strain Surgical History Unable to obtain intubated and sedated patient Allergies: Coded Allergies: No Known Drug Allergies (Verified Allergy, Unknown, 02/17/17) Family History Family History No family members present to obtain family history and patient is intubated and sedated Social History Hx Alcohol Use: Yes (5th of whiskey qd) Smoking Status: Current Every Day Smoker (1/2 ppd) Living Arrangement: with Family (lives with ) Exam Vital Signs Vital Sign - Last Date Time Temp Pulse Resp B/P Pulse Ox O2 Delivery O2 Flow Rate FiO2 05/19/17 11:25 111 158/72 100 100 General: Other Additional Information: General: Patient is intubated and sedated, lying in bed, Scott catheter in place , HEENT: Head NC/AT, eyes: Anisocoria with left greater than right 5 mm on the left and 4 mm on the right, pupils are reactive to light, nares, oral airway intubated, mucous membranes moist, neck, no adenopathy, no JVD, no masses, Chest: Lungs CTAB, no admission adventitious lung sounds, good air movement, Heart: Regular rate and rhythm without murmur Abdomen: Appears protuberant, with evidence of portal hypertension secondary to mild caput medusa, bowel sounds present, Extremities: Lower extremities bilaterally with large diffuse anterior rash system with severe tinea corporis Skin: Rash as previously stated, warm dry and intact, Neurologic: Intubated and sedated Psychiatric: Intubated and sedated Lab and Diagnostics Result Diagram: 05/19/17 1035 05/19/17 0725 Assessment & Plan Assessment This is a 37-year-old male with history of EtOH abuse drinks one half to a full fifth of whiskey per day, who was found down by his , covered in bloody vomit, and was intubated and subsequently admitted for acute upper GI bleed with severe anemia H&H 02/14 requiring massive transfusion 5 U packed RBCs, 2 units FFP, and 2 units of platelets. Patient was found to have the dieulafoy lesion of the gastric body status post upper endoscopy. # Current intubated and sedated On Propofol drip Venous blood gas 05/19/2017 12:35 was pH 7.426, PCO@ 45.2, PO2 29.7, HCO3 29.2, FIO2 100, PEEP 5.0, Vt 600 # Acute loss of consciousness, present on admission, active Head CT with no evidence of acute intracranial process Loss of consciousness likely secondary to massive acute GI blood loss # GI bleed, acute, severe, present on admission, active H/ in the ED, status post mass transfusion 5 U PRBCs, 2 U and 2 units platelets. INR 2.01, Fibrinogen 151 Repete H&H, 05/25, platelets [address] Shin GI which showed a gastric body dieulafoy lesion, no evidence of esophageal varices or esophageal/gastric mass. Continue pantoprazole drip Continue octreotide drip Ceftriaxone for SBP prophylaxis We will avoid anticoagulant medication given GI bleed DVT prophylaxis with pneumatic compression devices Continue to monitor with serial H/H Vitamin K 10 mg once We will transfuse blood as needed, transfusion threshold if hemoglobin less than 7. # Lactic Acidosis present on admission. active likely secondary to acute GI bleed Lactic 4.8 IV normal saline at 200 hr # Elevated Creatinine Kinase. present on admission, active CK of 810 IV fluid with NS at 200 for now and repeat CK and lactic # Thrombocytopenia on present admission, active Likely multifactorial given patient's history of EtOH abuse and alcoholic hepatic steatosis, as well as massive GI bleed Status post trans-fusion 2 units platelets Current platelets 80 Continue to monitor platelets with serial CBC as above and transfuse as appropriate # Hyponatremia, present on admission, active - Relpete Na with NS as above # EtOH abuse present admission, active Thiamine, folate replacement Monitor electrolytes, and replete as needed Midazolam drip for agitation and seizure prophylaxis # Leukocytosis, present admission, active WBC count 20.0 in the ED WBC currently 10.9 without left shift Prophylaxis with ceftriaxone IV 2 g every 24 Will monitor with daily CBC diff. # Tinea Corporis - Topical Terbinafine Pulmonology critical care time 90 minutes Problems: Pain Evaluation: Adequate Pain Control GI Prophylaxis: Proton Pump Inhibitor (GGT) VTE Prophylaxis Indicated: Contraindicated Resuscitation Status: CPR: Attempt Resuscitation Attending Statement I have seen and examined this patient with the resident physician. Vital signs , labs, imaging have been reviewed. I agree with the assessment and plan above. Please refer to my separately dictated progress note for any modifications to above. Renetta Young M.D. Pulmonary and Critical Care medicine Pager [phone] Dennis Friend DO May 19, 2017 12:52 Renetta Young MD May 21, 2017 14:49
[2017-05-19] MEDS: TerBINafine 1% 15 Gm Cream TOPICAL SCH (12:56)
[2017-05-19] MEDS: cefTRIAXone Inj 2,000 MG in Dextrose 5% Minibag Plus 50 ML IV SCH (12:56)
[2017-05-19 13:24] LABS: INR 1.47 ratio
[2017-05-19] MEDS: Octreotide Inj 500 MCG in 0.9% Sodium Chloride 99 ML IV SCH ×2 (13:24→22:50)
[2017-05-19] MEDS ORDERED: Sodium Chloride LOK Flush 10 mL Syringe IVFLUSH PRN ×2 (13:40)
--- NOTE | 2017-05-19 13:46 | PCM.ENDEGD ---
EGD Date of Service: May 19, 2017 Physician Stef Shin MD Pre Procedure Diagnosis: Coffee-ground emesis Post Procedure Dx & Findings: Esophagitis possible Scott's esophagus portal hypertensive gastropathy 1 cm almost healed ulcer possible dieulafoy in the proximal body of the stomach status post intervention Procedure Esophagogastroduodenoscopy PROCEDURE IN DETAIL: Sedation done by anesthesiology After proper sedation, Olympus video endoscope was inserted into patient's mouth and esophagus was successfully intubated. Scope introduced esophagus. Esophagus showed normal shiny whitish mucosa consistent with squamous cell component. Z line was 40 cm from the incisors. There was diffuse inflammation and edema with what appears to be a tongue of Scott's esophagus. Scope further advanced to the stomach. Stomach had mainly or blood. On the fundus some clots were noted. This was washed aggressively. No source of bleeding was noted on the fundus. However on the body of the stomach, there was a streak of fresh blood and we followed the streak of blood to a red spot. We washed this and it was not clearing. Oozing was continuous. 2 resolution clips deployed at that site and 5 mL epinephrine injection done. Complete hemostasis achieved. The entire body and the fundus of the stomach showed evidence of snake skin pattern consistent with portal hypertensive gastropathy. Right before the pylorus, there was a 1 cm defect in the mucosa and appears to be a almost healed ulcer. Cardia fundus body antrum pylorus were all visualized. Retroflexion was done. Stomach was easily inflated and deflatable using air. Scope further advanced to the distal duodenum. Duodenum revealed normal villous structures with normal appearing folds without any mass ulcer erosion. Impression Esophagitis possible Scott's esophagus portal hypertensive gastropathy 1 cm almost healed ulcer possible dieulafoy in the proximal body of the stomach status post intervention Recommendation Please read my recommendation in the consultation note. Presedation Assessment Risks and Benefits Informed consent was obtained from the patient after all risks and benefits including but not limited to drug reaction, infection, pain, bleeding, perforation, as well as alternatives were discussed. Patient monitoring Continuous pulse oximetry, cardiac monitoring, blood pressure monitoring, IV access, and oxygen at 2L per nasal cannula. Complications There were no periprocedural complications identified. Post Procedure Plan Post Procedure Recommendations 1. Restrict activities today. 2. Resume normal activities in the morning. 3. Resume medications. 4. GERD behavioral modification: - Avoid fatty, acidic, spicy, large meals - Do not lie down after meals - Do not eat or drink anything for at least 2 1/2 hours before going to bed at night - Discontinue tobacco and alcohol - Decrease or avoid caffeine - Avoid chocolate and mints - Decrease weight - Avoid aspirin and non steroidal anti-inflammatory agents (NSAID) such as Aleve, Advil, Mobic, Naproxen, Ibuprofen, etc 5. Add proton pump inhibitor. Take 30 minutes before 1st meal of the day. 6. Patient informed of normal post procedure side effects as bloating, drowsiness, blood streaking in the stool 7. If gastric biopsy reveal H.pylori, continue with appropriate treatment 8. If small bowel biopsy reveals celiac, continue with appropriate treatment 9. Please don't hesitate to call me with any questions Stef Shin MD May 19, 2017 13:46
--- NOTE | 2017-05-19 13:53 | PCM.ANEP1 ---
Post Anesthesia PACU Phase 1 Assessment Date of Service: May 19, 2017 Vital Signs Vital Signs Date Time Temp Pulse Resp B/P Pulse Ox O2 Delivery O2 Flow Rate FiO2 05/19/17 11:25 111 158/72 100 100 05/19/17 08:47 100 Anesthetic Administered: GA Level of Alertness: Sleeping, hard to arouse (ICU, intubated, sedated) Pain: No Nausea or Vomiting: No CV Function & Hydration Stable: Yes Airway Device: Endotrachial Tube Oxygen Delivery: Mechanical Ventilator Lungs: Clear to Auscultation PACU Phase 2 Assessment Complications: No Follow up Care: N/A Patient Instructions Provided: N/A Comments stable, no pressors, on vent with sedation in ICU. repeat H/H post resuscitation 05/25, intraop sample insufficient for INR Rene Manzano DO May 19, 2017 13:53
[2017-05-19] MEDS: fentaNYL 2,500 mCg/250 mL 2,500 MCG in IV Premix 1 EACH IV SCH (14:07)
[2017-05-19] MEDS ORDERED: Thiamine Inj 100 MG, Folic Acid Inj 1 MG, Magnesium Sulfate 50% Inj 2 GM, Multivitamins... IV ONE ×5 (14:10)
[2017-05-19] MEDS ORDERED: Phytonadione (Adult) 10 MG in Dextrose 5%-Pha MIX 50 ML IV ONE (14:50)
--- NOTE | 2017-05-19 15:35 | NUR ---
Admit to CCU Pt arrived to CCU from OR at 1130. Pt intubated, anesthesiologist had pt sedated with propofol. RT weaning vent settings as able. Pt restless and able to indicate pain. Propofol and fentanyl titrated for sedation and pain management. ST 1-teens. Afebrile. BP stable, no pressors needed, initally hypertensive, currently has MAP 71, BP decreased with sedation. Pt having PICC placed at this time. Octreotide and protonix gtts running, as ordered. NS at 200cc/hr for elevated lactate. To have CT of neck to clear c-spine, currently in hard c-collar that was placed in the field. Scott with mirtha UOP. Has rash to bilateral lower extremities,from knees down; antifungal cream applied. Report given and care transferred to Norma Frank RN.
--- NOTE | 2017-05-19 15:43 | CONS ---
[address] [address] CONSULTATION REPORT PATIENT: DANITZA RILEY : 1980 MR#: [id number] ADMIT: 05/19/2017 JOB ID: [id number] DATE OF SERVICE: 05/19/2017 The patient is a 37-year-old man seen in consultation at the request of Dr. Rivas for acute respiratory failure and GI bleed. The patient was seen and evaluated with resident physician, Dennis Friend. Please refer to his separate detailed note for complete information. The following is a brief attending note. HISTORY OF PRESENT ILLNESS: The patient is a 37-year-old man with a longstanding history of alcohol abuse who was found down by his with reported black vomit/blood around him. History is per review of medical records since the patient is intubated currently and unable to provide any. He was intubated in the field and brought into the emergency department where he was found to be severely anemic with hemoglobin of 5. He then proceeded to have an endoscopy which showed multiple abnormalities including esophagitis, Scott's esophagus, possible Dieulafoy lesion in the body of the stomach that was intervened upon, portal hypertensive gastropathy, and a small ulcer. Dr. Shin with GI proceeded with clips and injecting epinephrine in the Dieulafoy lesion and this resulted in cessation of bleeding. The patient was then transferred to the ICU. He has received so far 5 units packed red cells, 2 units FFP. He is hemodynamically stable at this time. Past medical history, social history, family history, review of systems could not be obtained since the patient is intubated. Please refer to Dr. Friend's separate note for complete information regarding this and a complete physical exam. A brief physical exam is below. Vital signs reviewed. He is satting 100% on 50% FiO2 and he is afebrile. Temperature was low on initial presentation. General: Intubated, sedated, unresponsive. Chest clear to auscultation. Abdomen soft, nontender. No organomegaly. Extremities: Lower extremities have a rash that is worse on the right lower extremity below the knee. There is erythema with geographic demargination extending all over the anterior surface of the right leg below the knee. There are similar lesions, smaller in size on the left lower extremity below the knee that are rounded, well-circumscribed. Chest x-ray shows ET tube in expected position. Lungs are clear. CT of the abdomen shows evidence of portal hypertension with hepatosplenomegaly and no ascites. Nodular liver. CT of the brain also done. ASSESSMENT AND RECOMMENDATIONS: 1. Acute upper GI bleed. 2. Acute blood loss anemia. 3. Acute respiratory failure with hypoxia. 4. Alcohol abuse. 5. Cirrhosis with portal hypertension. This 37-year-old man was found down and intubated in the field. Subsequently found to be severely anemic with likely an upper GI bleed due to Dieulafoy lesion. He has multiple other pathologies as described in the GI note including esophagitis, peptic ulcer, portal hypertensive gastropathy. He is currently on a PPI drip, octreotide drip, ceftriaxone for SBP prophylaxis. We have labs pending to follow up on his coags, CBC. His last hemoglobin was around 8 after five units of packed red cells and he has additional blood products available. We will go ahead and give him a dose of vitamin K IV. He is going to need additional IV access so a PICC line will be placed for that. A C-spine CT is pending to clear his cervical spine and remove the C-collar. With regards to the ventilator, I would like to give him 24 hours to ensure he does not have any re-bleeding before extubating him. We could probably attempt that tomorrow. We will be watchful for signs of alcohol withdrawal postextubation and consider Ativan pushes and even Ativan drip if necessary at that point. DVT prophylaxis is contraindicated because of his bleeding. He is on a PPI drip for GI prophylaxis/therapeutic. CRITICAL CARE TIME: 45 minutes.
[2017-05-19] MEDS ORDERED: 0.9% Sodium Chloride 500 ML IV ONE (16:10)
[2017-05-19] MEDS ORDERED: Midazolam Inj 100 MG in IV Premix 1 EACH IV PRN (16:30)
--- NOTE | 2017-05-19 16:41 | DRSVH ---
PROCEDURE: X-RAY PICC LINE PLACEMENT BY NURSE ([id number]) INDICATIONS: hemodynamic monitoring COMPARISON: None. FINDINGS: PICC was placed by the intravenous therapy team from the left side. Fluoroscopic spot ivon m demonstrates tip of PICC in the SVC. IMPRESSION: Tip of PICC lies within the low SVC. Dictated by: Kwame De La Torre M.D. on 05/19/2017 at 16:39 Approved by: Kwame De La Torre M.D. on 05/19/2017 at 16:39
--- NOTE | 2017-05-19 18:10 | NUR ---
Versed gtt started Pt may be starting to go through ETOH withdrawls. He continues to be restless at times, trying to sit up in bed. Propofol is at 35mg and Fentanyl titrated up to 100mcg. Versed at this time is having good effect. VS are stable, although BP is down with sys in the 90's. will continue to monitor.
--- NOTE | 2017-05-19 19:23 | NUR ---
Pt has restraints on Pt has restraints, MD is aware.
--- NOTE | 2017-05-19 20:44 | DRSVH ---
PROCEDURE: CT CERVICAL SPINE WITHOUT CONTRAST ([id number]) INDICATIONS: 37 year-old intubated male with cervical spine trauma. TECHNIQUE: Noncontrast 3 mm thick sections acquired from the skull base to the T4 level. Sagittal and coronal r eformats were then constructed. For radiation dose reduction, the following was used: automated exp osure control, adjustment of mA and/or kV according to patient size. COMPARISON: [facility], CT, CT CERVICAL SPINE WO CON, 02/17/2017, 18:47. FINDINGS: Image quality: Excellent. Bones: No fractures or dislocations. Visualized superior ribs are intact. There is mild C5-C6 and C 6-C7 disc degeneration. Soft tissues: Endotracheal tube is present. Prevertebral soft tissues are normal in thickness. No p aravertebral hematomas. No apical pneumothoraces. IMPRESSION: No acute bony injuries of the cervical and upper thoracic spine from the foramen magnum to the T4 lev el. Mild lower cervical spine disc degeneration. Dictated by: Doug Zhu M.D. on 05/19/2017 at 20:38 Approved by: Doug Zhu M.D. on 05/19/2017 at 20:43
[2017-05-19] MEDS ORDERED: 0.9% Sodium Chloride 250 ML IV STA (21:48)
[2017-05-20] VITALS (11 sets, daily range): BP systolic 96–122; BP diastolic 41–65; PULSE 93–98; RESP 13–19; O2SAT 95–98
--- NOTE | 2017-05-20 00:19 | ABG ---
DateTimeAnalyzed 00:11:35 -_ pH ____7.572 - 7.350 7.450 pCO2 ___34.7__ -mmHg 35.0 45.0 pO2 ___93.4__ -mmHg 69.0 116 HCO3- ___31.9__ -mmol/L 22.0 26.0 ABE ____9.0__ -mmol/L -2.0 2.0 tHb ____7.7__ -g/dL 12.0 18.0 O2Hb ___97.9__ -% COHb ____1.9__ -% 0.0 1.5 MetHb ____0.0__ -% 0.4 1.5 sO2 ___99.7__ -% FIO2 ___21.0__ -% PEEP ____5.0__ -cmH2O Set_RR 16 -b/min Vt __600.0__ -L Drawn By MD - Date/Time Notified____ 00:19:00 -_ Spontaneous_RR 16 -b/min Oxygen Device 1 VENTILATOR - Notified By MD - Notified Whom RN J.HERLICKSON - K+ ____3.4__ -mmol/L 3.5 5.0 tO2 ___10.8__ -Vol% Malachi test N/A -
[2017-05-20] MEDS: Propofol Inj 1,000,000 MCG in IV Premix 1 EACH IV PRN ×3 (01:15→09:58)
[2017-05-20] MEDS: Pantoprazole 8 mg/Hr Infusion IV SCH ×4 (03:00→16:19)
[2017-05-20 04:39] LABS: BASOPHILS % (AUTO) 0.2 % (0-3); EOSINOPHILS % (AUTO) 0.9 % (0-5); MONOCYTES % (AUTO) 4.6 % (4-12); Mean Corpuscular Hemoglobin 28.3 pg (27.0-35.0); Mean Corpuscular Volume 85.7 fL (81-100); NEUTROPHILS % (AUTO) 74.3 % (40-74); Platelet Count 69 bil/L (150-400)
--- NOTE | 2017-05-20 04:59 | ABG ---
DateTimeAnalyzed 04:50:14 -_ pH ____7.513 - 7.350 7.450 pCO2 ___41.7__ -mmHg 35.0 45.0 pO2 ___70.6__ -mmHg 69.0 116 HCO3- ___33.4__ -mmol/L 22.0 26.0 ABE ____9.6__ -mmol/L -2.0 2.0 tHb ____7.8__ -g/dL 12.0 18.0 O2Hb ___94.1__ -% COHb ____2.1__ -% 0.0 1.5 MetHb ____0.5__ -% 0.4 1.5 sO2 ___96.6__ -% FIO2 ___21.0__ -% PEEP ____5.0__ -cmH2O Set_RR 11 -b/min Vt __600.0__ -L Drawn By MD - Date/Time Notified____ 04:58:00 -_ Spontaneous_RR 13 -b/min Oxygen Device 1 VENTILATOR - Notified By MD - Notified Whom RN J.HERLICKSON - K+ ____3.3__ -mmol/L 3.5 5.0 tO2 ___10.4__ -Vol% Malachi test N/A -
--- NOTE | 2017-05-20 05:20 | NUR ---
2300 C-spine clearance. CT c spine completed and results reported to Dr. Massey. C-spine collar removed per . Tolerated well.
--- NOTE | 2017-05-20 05:22 | NUR ---
Vent, sedation, anemia Vs as noted. Continues ventilated with sats mid 90s on now 35% fio2. Sedated with Versed 2mg/h, Fentanyl 50mcg/h and Propofol 15mcg/kg/min. Pt arouses to make eye contact and nods yes/no appropriately. H/h 2114 of 04/[address] Massey. One unit RBCs . Am hgb 7.5 reported. No stools or obvious signs of bleeding noted.
[2017-05-20] MEDS: Multivit-Miner-Folic Acid-Iron Tablet PO SCH (08:05)
[2017-05-20] MEDS: TerBINafine 1% 15 Gm Cream TOPICAL SCH (08:05)
[2017-05-20] MEDS: THIAMINE IV SCH (08:09)
[2017-05-20] MEDS: FOLIC ACID IV SCH (08:09)
[2017-05-20] MEDS: DEXTROSE 5% IV SCH (08:09)
[2017-05-20] MEDS ORDERED: Thiamine Inj 200 MG in Dextrose 5% 50 ML IV SCH (08:30)
--- NOTE | 2017-05-20 08:34 | DRSVH ---
PROCEDURE: X-RAY CHEST ONE VIEW, PORTABLE ([id number]) INDICATIONS: Intubated patient TECHNIQUE: One view of the chest was acquired. COMPARISON: [facility], CR, XR PICC LINE PLACE BY NURSE, 05/19/2017, 14:21. [facility], CR, XR CHEST 1VW (PORTABLE), 05/19/2017, 7:12. [facility], CR, XR CHEST 1VW ( PORTABLE), 02/17/2017, 18:11. FINDINGS: Surgical changes and devices: The what likely is a PICC line from left-sided approach crosses the mid line, and tracks inferiorly into the distal SVC area. Endotracheal tube positioning normal Lungs and pleura: No pleural effusions or pneumothorax. Lungs are abnormal, with a dense alveolar i nfiltration and or left lower lobe and reduced inspiration bilaterally. Left lower lobe pneumonia pr esumed, and what appears to be electrode leads overlie the chest. Mediastinum: Mediastinal contours appear normal. Heart size is normal. Bones and chest wall: No suspicious bony lesions. Overlying soft tissues appear unremarkable. IMPRESSION: Left lower lobe pneumonia. Endotracheal tube position normal. What appears to be a PICC line from left-sided approach extends into the distal SVC. Please note, however, that multiple elec trode leads overlie the chest superimposed on this area and the exact positioning of what is felt to be the PICC line is uncertain. The PICC line fluoroscopy showed excellent positioning of the PICC li ne when it was placed yesterday. It was better visualized by that study. Dictated by: Salty Daniel M.D. on 05/20/2017 at 8:30 Approved by: Salty Daniel M.D. on 05/20/2017 at 8:33
--- NOTE | 2017-05-20 08:34 | PCM.PNMED ---
Subjective Date of Service May 20, 2017 Subjective Patient is intubated and sedated. He does open his eyes and respond to good morning. He was started on a Versed drip overnight for agitation and has improved considerably. He is doing well on a breathing trial and 5 above PEEP now. Little low-grade fever overnight Review of systems and subjective otherwise not obtainable. Exam Vital Signs Vital Sign - Last Date Time Temp Pulse Resp B/P Pulse Ox O2 Delivery O2 Flow Rate FiO2 05/20/17 07:59 38.0 95 17 107/56 95 Mechanical Ventilator 30 Intake and Output 05/19/17 05/19/17 05/20/17 Cumulative From/Thru 15:00 23:00 07:00 05/19/17 17:20 - 05/20/17 06:28 Intake Total 978 ml 3422 ml 4400 ml Output Total 400 ml 800 ml 1200 ml Balance 578 ml 2622 ml 3200 ml Intake Oral 0 ml 0 ml IV Total 978 ml 3047 ml 4025 ml Packed Cells 375 ml 375 ml Output Urine Total 400 ml 800 ml 1200 ml Exam Arousable, intubated. No distress. Symmetric pupils, conjugate gaze. Anicteric sclera. Lungs are clear with normal rate and effort Heart is regular without murmur gallop or rub Abdomen soft nontender, flat Extremities are free of edema. Skin is free of rash or lesions. Except the right pretibial region which has an area of tinea IVs and Medications Medications Reviewed: Medications were reviewed in detail Lab and Diagnostics Result Diagram: 05/20/17 0420 05/20/17 0420 X-Rays, CTs and MRIs Chest x-ray IMPRESSION: New ET tube tip in expected position. Dictated by: Kwame De La Torre M.D. on 05/19/2017 at 8:[address] 1. Worsening hepatosplenomegaly and worsening portal hypertension, in this patient with prior evidence of portal hypertension during CT scanning 02/17/17. No ascites is found, however, and no definite malignancy is identified. 2. A colonic mass or other source of GI bleeding is not identified. However, given the portal hypertension present bleeding varicosities would be a likely potential source. 3. The liver is prominently heterogeneous, in a pattern suggestive of significant interval worsening of fatty infiltration, with an unusual multinodular pattern of what appears to be fatty infiltration in several portions of the liver. Underlying acute hepatitis may be superimposed. The likelihood of malignancy as cause of this appearance is considered low but remains possible (yet unlikely). Dictated by: Salty Daniel M.D. on 05/19/2017 at 9:[address] IMPRESSION: No CT evidence of acute intracranial pathology. Dictated by: Kwame De La Torre M.D. on 05/19/2017 at 8:59 12-lead ECG Sinus tach at [address] changes. Assessment & Plan 37 year old male with hx of alcohol abuse and ibuprofen abuse who presented obtunded to the ED from home after being found down, hypoxic, and covered in black/red emesis. Acute hypoxic respiratory failure; POA; ongoing and improved. -Likely due to alcohol and acute blood loss causing syncope -Ventilated and managed by pulmonology The patient is a breathing trial and we will moved to extubate this morning. Severe Acute GI bleed; POA; ongoing and improved. -Patient found down with red/black emesis and stool -Hx of severe Etoh abuse and NSAIDs -Hgb was 5 on admission -Octreotide and protonix drips -No NG at this time -Emergent endoscopy with injection of possible dieulafoy in the proximal body of the stomach The patient sees one unit of blood overnight. A repeat hematocrit. 30 will be obtained. Blood will be given as needed for a threshold hematocrit of 21. Acute kidney injury; POA; improved. -Likely due to acute blood loss and dehydration leading to prerenal azotemia -CK elevated but less than 1000 -aggressive hydration given, now will decrease the rate of fluids. Severe anion gap metabolic acidosis and lactic acidosis; POA; ongoing and improving. -Elevated lactic acidosis with TAMMIE -Fluids -Trend lactate Alcoholic hepatitis with cirrhosis; POA; ongoing and improving. -Elevated transaminases and alcoholic pattern and prolonged PT on admission -Small ascites and portal hypertension on CT with history of alcohol dependence -CIWA ordered -Thiamine 300 mg now and 200 daily starting tomorrow -Full evaluation of sequelae negative Hyperglycemia; POA; ongoing and improving. -No history of diabetes blood sugars 190+; questionable if due to stress reaction -Regular 6 units Q8 Alcohol dependence; POA; ongoing and active with possible early withdrawal. -Reportedly drinks half to a full fifth foreskin a day -Ray taken two Klonopin this morning as well -Thiamine 300 mg now and 200 daily starting tomorrow We will continue Versed drip through the extubation phase and then wean and placed on the CIWA protocol. Dangerous medications include Versed drip, propofol drip, fentanyl drip. Disposition: Patient is being admitted to inpatient status with expected length of stay greater than two midnights due to to severity of presentation, duration of treatment, and risks of adverse events disposition Full code GI Prophylaxis: Proton Pump Inhibitor (GGT) Resuscitation Status: CPR: Attempt Resuscitation Malachi Jolly MD May 20, 2017 08:34
[2017-05-20] MEDS: 0.9% Sodium Chloride 1,000 ML IV SCH ×2 (09:13→09:19)
[2017-05-20] MEDS: Octreotide Inj 500 MCG in 0.9% Sodium Chloride 99 ML IV SCH ×2 (09:18→19:30)
--- NOTE | 2017-05-20 10:43 | PCM.PNMED ---
Subjective Date of Service May 20, 2017 Subjective Patient is intubated and sedated. Hemoglobin has remained stable after receiving 1 unit of blood. No melena noted. NG lavage done with 500 mL of water. Lavage was clear. Exam Vital Signs Vital Sign - Last Date Time Temp Pulse Resp B/P Pulse Ox O2 Delivery O2 Flow Rate FiO2 05/20/17 07:59 38.0 95 17 107/56 95 Mechanical Ventilator 30 Intake and Output 05/19/17 05/19/17 05/20/17 Cumulative From/Thru 15:00 23:00 07:00 05/19/17 17:20 - 05/20/17 06:28 Intake Total 978 ml 3422 ml 4400 ml Output Total 400 ml 800 ml 1200 ml Balance 578 ml 2622 ml 3200 ml Intake Oral 0 ml 0 ml IV Total 978 ml 3047 ml 4025 ml Packed Cells 375 ml 375 ml Output Urine Total 400 ml 800 ml 1200 ml Exam Intubated sedated Head and neck no icterus Lungs clear anteriorly Cardiovascular regular rate and rhythm normal S1 and S2 Abdomen soft nontender nondistended with decreased bowel sounds Extremities no pitting edema of ankles Skin shows no jaundice. However the leg has these patches of redness on the skin which was here yesterday. Lab and Diagnostics Result Diagram: 05/20/17 0905 05/20/17 0420 X-Rays, CTs and MRIs Chest x-ray IMPRESSION: New ET tube tip in expected position. Dictated by: Kwame De La Torre M.D. on 05/19/2017 at 8:[address] 1. Worsening hepatosplenomegaly and worsening portal hypertension, in this patient with prior evidence of portal hypertension during CT scanning 02/17/17. No ascites is found, however, and no definite malignancy is identified. 2. A colonic mass or other source of GI bleeding is not identified. However, given the portal hypertension present bleeding varicosities would be a likely potential source. 3. The liver is prominently heterogeneous, in a pattern suggestive of significant interval worsening of fatty infiltration, with an unusual multinodular pattern of what appears to be fatty infiltration in several portions of the liver. Underlying acute hepatitis may be superimposed. The likelihood of malignancy as cause of this appearance is considered low but remains possible (yet unlikely). Dictated by: Salty Daniel M.D. on 05/19/2017 at 9:[address] IMPRESSION: No CT evidence of acute intracranial pathology. Dictated by: Kwame De La Torre M.D. on 05/19/2017 at 8:59 12-lead ECG Sinus tach at [address] changes. Assessment & Plan 37 year old male with hx of alcohol abuse and ibuprofen abuse who presented obtunded to the ED from home after being found down, hypoxic, and covered in black/red emesis. EGD was done yesterday emergently after 5 units of blood FFP is and platelets. This morning NG lavage clear. Hemodynamics stable. Hemoglobin stable. Minimal evidence of continuous GI bleed. There is evidence of alcoholic hepatitis. Discriminant factor today is less than 32. EGD showed portal hypertensive gastropathy esophagitis healing ulcer and dieulafoy in the proximal body which was treated. 1 Difficult to assess neurologic status such as encephalopathy. We will reassess this after extubation. However with amount of bleeding that he had, some form of hepatic encephalopathy would not be surprising. 2 Patient is still intubated. Spoke with pulmonology and they are planning on extubating and sometime today. Patient is currently hemodynamically stable. 3 I suspect the slow trending of hemoglobin downward yesterday was probably from mild diffuse bleeding from portal hypertensive gastropathy. This is to be expected. However to minimize this, would recommend permissive anemia. Would not transfuse the patient unless hemoglobin level goes below 7. However if there is evidence of coffee-ground emesis NG suction showing coffee-ground material or hemodynamic instability, then I would aggressively transfuse. As long as there is no clinical evidence of GI bleeding, I would not transfuse blood unless hemoglobin level goes below 7. Would also like to keep the INR less than 1.3 if possible. And recommend trying to keep the platelets above 50, 000 if possible. 4 Thus far there is minimal evidence of fluid overload. Once he starts developing ascites or third spacing, then consider using Lasix and spironolactone. 5 Continue IV Protonix continue IV octreotide continue IV antibiotics for total 5 days. 6 Recommend cessation of alcohol. 7 Would obtain alpha-fetoprotein. GI Prophylaxis: Proton Pump Inhibitor (GGT) Resuscitation Status: CPR: Attempt Resuscitation Stef Shin MD May 20, 2017 10:43 -Trend lactate Alcoholic hepatitis with cirrhosis; POA; ongoing and improving. -Elevated transaminases and alcoholic pattern and prolonged PT on admission -Small ascites and portal hypertension on CT with history of alcohol dependence -CIWA ordered -Thiamine 300 mg now and 200 daily starting tomorrow -Full evaluation of sequelae negative Hyperglycemia; POA; ongoing and improving. -No history of diabetes blood sugars 190+; questionable if due to stress reaction -Regular 6 units Q8 Alcohol dependence; POA; ongoing and active with possible early withdrawal. -Reportedly drinks half to a full fifth foreskin a day -Ray taken two Klonopin this morning as well -Thiamine 300 mg now and 200 daily starting tomorrow We will continue Versed drip through the extubation phase and then wean and placed on the CIWA protocol. Dangerous medications include Versed drip, propofol drip, fentanyl drip. Disposition: Patient is being admitted to inpatient status with expected length of stay greater than two midnights due to to severity of presentation, duration of treatment, and risks of adverse events disposition Full code GI Prophylaxis: Proton Pump Inhibitor (GGT) Resuscitation Status: CPR: Attempt Resuscitation Stef Shin MD May 20, 2017 10:43
--- NOTE | 2017-05-20 10:53 | NUR ---
Pt extubated at 1045hrs Pt has been doing well, no obvious signs of bleeding. Following H&H. Pt did well on PST this am with both Propofol and Fentanyl infusing. Versed was DC'd. NG was placed and 500cc lavage completed per MD. No bleeding, no clots noted when suctioned. Pt was extubated to NV. He continues to be drowsy but is easily woken and is obeying commands.
--- NOTE | 2017-05-20 11:14 | NUR ---
NUTRITION ASSESSMENT: ASSESS:37 YO male admitted to CCU after being found down, intubated in the field, with a significant GI bleed related to chronic alcoholism. EGD was done yesterday emergently after 5 units of blood FFP and platelets. This morning NG lavage clear, hemodynamics stable, hemoglobin stable. There is minimal evidence of continuous GI bleed. There is evidence of alcoholic hepatitis. EGD showed portal hypertensive gastropathy esophagitis healing ulcer and dieulafoy in the proximal body which was treated.The patient was extubated at 1045 this morning and currently on nasal cannula. CIWA protocol in effect; pt. receiving thiamine and MVI. PMHx:ETOH abuse, tinea corporis, shoulder strain. DIET:NPO. LABS: Reviewed. K+ 3.34, Chloride 95, BUN 43, Glu 142, Ca 7.2, Total Bili 2.6, AST 903, ALT 173, Alb 2.9. MEDICATIONS: Reviewed. MVI, thiamine. NUTRITION FOCUSED PHYSICAL ASSESSMENT: GI symptoms / stool: No stool reported.Juan Carlos: 14.0. Skin Integrity: No issues reported. ANTHROPOMETRICS: Current Wt: 113.5 kgBMI: 33.0 kg/m2. IBW: 77.6 kg (146% IBW) ESTIMATED NEEDS (CLASS I OBESITY, ETOH): Calories: 1940 - 2328 kcal (25 - 30 kcal / kg IBW) Protein: 140 - 155 g protein (1.8 - 2.0 g / kg IBW) NUTRITION DIAGNOSIS: 1)Altered nutrient metabolism related to alcoholism, as evidenced by elevated LFT's. INTERVENTION: 1) Recommend counseling for cessation of alcohol. MONITOR/EVALUATE: Diet advance / tolerance, PO intake, labs, GI/nutrition status. Follow up per moderate nutrition risk guidelines.
--- NOTE | 2017-05-20 11:17 | PROG NOTE ---
[address] [address] PROGRESS NOTE PATIENT: DANITZA RILEY : 1980 MR#: [id number] ADMIT: 05/19/2017 JOB ID: [id number] DATE: 05/20/2017 PULMONARY CRITICAL CARE PROGRESS NOTE: The patient ann is a 37-year-old man with a longstanding history of alcohol abuse and finding of cirrhosis with portal hypertension presenting with upper GI bleed. INTERVAL HISTORY: Hemoglobin has slowly drifted down overnight to around 7.5. No visible signs of bleeding. He is hemodynamically stable and doing very well on a pressure support trial this morning/spontaneous breathing trial. REVIEW OF SYSTEMS: Could not be obtained directly from the patient since he is intubated. PHYSICAL EXAMINATION: Vital signs reviewed. T-max 38, pulse 95, respirations 17, BP 107/56, sats 95% on 30% FiO2. General: Alert, sitting up in bed, breathing comfortably on pressure support. Chest: Clear to auscultation. Abdomen: Nontender. Extremities: Skin over lower extremities has a rash as described in my note from yesterday involving more of the right lower extremity than the left. Please see my note yesterday for complete description. LABORATORY: As noted yesterday, his hemoglobin was 8.5 at 2 p.m., dropped to 7.1 at 9 p.m. He received 1 unit of packed red cells and his hemoglobin this morning is 7.5, and 7.6 on recheck, most recently at 9 a.m. No visible signs of bleeding. Chemistry also reviewed. AST 908, ALT 173, bilirubin is 2.6. Cultures: He is MRSA positive on nasal swab by PCR. Arterial blood gas from this morning shows pH 7.51, pCO2 of 41, pO2 of 70, bicarb of 33. IMAGING: He has some retrocardiac atelectasis today which is new compared to yesterday. ET tube is in appropriate position. ASSESSMENT: 1. Acute blood loss anemia. 2. Acute upper gastrointestinal (GI) bleed due to esophagitis, portal hypertensive gastropathy, Dieulafoy's lesion in the stomach. 3. Acute respiratory failure with hypoxia. 4. Alcohol abuse. 5. Cirrhosis with portal hypertension. RECOMMENDATIONS: A 37-year-old man who was found down, surrounded by blood, and brought into the emergency department intubated, found to have hemoglobin of 5. Endoscopy revealed findings as described above and the Dieulafoy's lesion was clipped and injected with epi. He has been hemodynamically stable overnight, on the ventilator, with no active signs of bleeding but his hemoglobin has drifted down slightly. This is stable however this morning and after discussion with Dr. Shin we did an NG lavage which showed no active bleeding. Dr. Shin attributes his ongoing slow drop to oozing from portal hypertensive gastropathy for which there is not a lot of treatment. He recommended not trying to transfuse him to a hemoglobin above eight because this might increase the bleeding. At this point we will continue to watch him. His INR is around 1.5 and platelets are around 70. The plan is to go ahead and extubate him. We will continue the PPI drip and octreotide drip in the meantime. He is also getting ceftriaxone for SBP prophylaxis. We will decrease hemoglobin checks to q.12 hours at this point unless he shows active signs of bleeding. DVT prophylaxis is on hold because of the bleeding and he is getting a PPI drip as mentioned above. TIME: Critical care time is 45 minutes.
[2017-05-20] MEDS: fentaNYL 2,500 mCg/250 mL 2,500 MCG in IV Premix 1 EACH IV SCH (11:39)
[2017-05-20] MEDS: cefTRIAXone Inj 2,000 MG in Dextrose 5% Minibag Plus 50 ML IV SCH (11:48)
--- NOTE | 2017-05-20 18:16 | NUR ---
I and O's: disregard repeated data Same I&O's filed twice this evening. Unable to delete repeated column of data.
--- NOTE | 2017-05-20 18:17 | NUR ---
P: Resp, Cardiac, Neuro, I,E: Pt was extubated this am and has done well on 2l NC today. His voice is stronger and he continues to have a strong cough. Sats are high 90's. Pt is in SR in the 80's to 90's. UOP was 950cc this shift, urine is dk mirtha. Pt is alert and oriented, approp in conversation. No signs of DT's at this time. Pt has had family in to visit him today and are very supportive.
[2017-05-21] VITALS (8 sets, daily range): BP systolic 106–118; BP diastolic 50–75; PULSE 79–87; RESP 16–20; O2SAT 96–99
[2017-05-21] MEDS: Pantoprazole 8 mg/Hr Infusion IV SCH ×6 (03:21→14:28)
[2017-05-21] MEDS: 0.9% Sodium Chloride 1,000 ML IV SCH ×3 (03:21→14:28)
[2017-05-21 05:08] LABS: BASOPHILS % (AUTO) 0.2 % (0-3)
[2017-05-21 05:11] LABS: EOSINOPHILS % (AUTO) 1.5 % (0-5); MONOCYTES % (AUTO) 10.9 % (4-12); Mean Corpuscular Hemoglobin 28.5 pg (27.0-35.0); Mean Corpuscular Volume 86.7 fL (81-100); NEUTROPHILS % (AUTO) 65.7 % (40-74); Platelet Count 70 bil/L (150-400)
--- NOTE | 2017-05-21 06:09 | NUR ---
Respiratory, CIWA Vs as noted. Sats on 2l/nc mid 90s. On room air when asleep desaturated to 89-90%. Pt dozing most of the night. Arouses easily and is appropriate. CIWA zero. Taking bits of ice without issue. Scott cath in place with mirtha uop. No stools or emesis. Complains of throat discomforts after extuabation.
[2017-05-21] MEDS: Octreotide Inj 500 MCG in 0.9% Sodium Chloride 99 ML IV SCH ×2 (06:27→14:28)
[2017-05-21] MEDS: Multivit-Miner-Folic Acid-Iron Tablet PO SCH (07:33)
[2017-05-21] MEDS: FOLIC ACID IV SCH (07:33)
[2017-05-21] MEDS: DEXTROSE 5% IV SCH (07:33)
[2017-05-21] MEDS: THIAMINE IV SCH (07:33)
[2017-05-21] MEDS: TerBINafine 1% 15 Gm Cream TOPICAL SCH (07:34)
[2017-05-21] MEDS ORDERED: KCl 40 mEq/100 mL (CENTRAL) 40 MEQ in IV Premix 1 EACH IV ONE (08:15)
--- NOTE | 2017-05-21 08:23 | PCM.PNMED ---
Subjective Date of Service May 21, 2017 Subjective He is doing better today. He denies any anxiety or feeling tremulousness. No hallucinations. He is breathing without difficulty. Some mild abdominal pain. No bowel movement overnight. Scott was removed. No difficulty urinating. Labs are notable for low potassium No other overnight events noted. Exam Vital Signs Vital Sign - Last Date Time Temp Pulse Resp B/P Pulse Ox O2 Delivery O2 Flow Rate FiO2 05/21/17 04:00 36.8 81 18 112/58 97 Nasal Cannula 2.00 05/20/17 15:39 30 Intake and Output 05/20/17 05/20/17 05/21/17 Cumulative From/Thru 15:00 23:00 07:00 05/19/17 17:20 - 05/21/17 06:06 Intake Total 3200 ml 1424 ml 9024 ml Output Total 2850 ml 850 ml 4900 ml Balance 350 ml 574 ml 4124 ml Intake Oral 0 ml 0 ml IV Total 3200 ml 1424 ml 8649 ml Packed Cells 375 ml Output Urine Total 2850 ml 850 ml 4900 ml Exam Alert and oriented -3, no distress. Fluent speech Anicteric sclera. Lungs are clear with normal rate and effort Heart is regular without murmur gallop or rub Abdomen soft nontender, flat Extremities are free of edema. Skin is free of rash or lesions. Except for lysis of large area of tinea pedis on his right leg and multiple annular lesions on his left leg. IVs and Medications Medications Reviewed: Medications were reviewed in detail Lab and Diagnostics Result Diagram: 05/21/17 0440 05/21/17 0500 X-Rays, CTs and MRIs Chest x-ray IMPRESSION: New ET tube tip in expected position. Dictated by: Kwame De La Torre M.D. on 05/19/2017 at 8:[address] 1. Worsening hepatosplenomegaly and worsening portal hypertension, in this patient with prior evidence of portal hypertension during CT scanning 02/17/17. No ascites is found, however, and no definite malignancy is identified. 2. A colonic mass or other source of GI bleeding is not identified. However, given the portal hypertension present bleeding varicosities would be a likely potential source. 3. The liver is prominently heterogeneous, in a pattern suggestive of significant interval worsening of fatty infiltration, with an unusual multinodular pattern of what appears to be fatty infiltration in several portions of the liver. Underlying acute hepatitis may be superimposed. The likelihood of malignancy as cause of this appearance is considered low but remains possible (yet unlikely). Dictated by: Salty Daniel M.D. on 05/19/2017 at 9:[address] IMPRESSION: No CT evidence of acute intracranial pathology. Dictated by: Kwame De La Torre M.D. on 05/19/2017 at 8:59 12-lead ECG Sinus tach at [address] changes. Assessment & Plan #. Acute hypoxic respiratory failure; POA; resolved. Patient extubated yesterday morning. #. Severe Acute GI bleed; POA; ongoing and resolved. -Patient found down with red/black emesis and stool -Hx of severe Etoh abuse and NSAIDs -Hgb was 5 on admission -Octreotide and protonix drips, for 5 days each. We will follow clinically, and monitor hematocrit. #. Acute blood loss anemia, POA and stable. We will continue to follow hematocrit. #. Acute kidney injury; POA; resolved. -Likely due to acute blood loss and dehydration leading to prerenal azotemia -CK elevated but less than 1000 Continue to follow clinically. #. Severe anion gap metabolic acidosis and lactic acidosis; POA; resolved.. -Elevated lactic acidosis with TAMMIE Follow clinically. #. Alcoholic hepatitis with cirrhosis; POA; improving. -Elevated transaminases and alcoholic pattern and prolonged PT on admission #. Hyperglycemia; POA; improved. -No history of diabetes blood sugars 190+; questionable if due to stress reaction Correctional lispro #. Alcohol dependence; POA; no evidence of withdrawal.. -Reportedly drinks half to a full fifth foreskin a day -Ray taken two Klonopin this morning as well Continue thiamine We will start Librium 10 mg by mouth every 6 hours scheduled. Disposition: Patient is being admitted to inpatient status with expected length of stay greater than two midnights due to to severity of presentation, duration of treatment, and risks of adverse events disposition Full code GI Prophylaxis: Proton Pump Inhibitor (GGT) IV twice a day Resuscitation Status: CPR: Attempt Resuscitation The patient's high risk protocol at all or rebleed. He has multiple active medical problems going on including acute blood loss anemia, GI bleed as well as alcohol dependence and hypokalemia. GI Prophylaxis: Proton Pump Inhibitor (GGT) Resuscitation Status: CPR: Attempt Resuscitation Malachi Jolly MD May 21, 2017 08:23
[2017-05-21] MEDS ORDERED: Multivit-Miner-Folic Acid-Iron Tablet PO SCH (08:30)
[2017-05-21] MEDS: Mupirocin 2% 22 Gm Ointment TOPICAL SCH ×2 (08:30→20:30)
--- NOTE | 2017-05-21 10:46 | PCM.PNMED ---
Subjective Date of Service May 21, 2017 Subjective Patient's hemoglobin remained stable. He was extubated. Denies any chest pain shortness of breath abdominal pain. Exam Vital Signs Vital Sign - Last Date Time Temp Pulse Resp B/P Pulse Ox O2 Delivery O2 Flow Rate FiO2 05/21/17 08:30 36.6 84 16 106/50 99 Nasal Cannula 2.00 05/20/17 15:39 30 Intake and Output 05/20/17 05/20/17 05/21/17 Cumulative From/Thru 15:00 23:00 07:00 05/19/17 17:20 - 05/21/17 06:06 Intake Total 3200 ml 1424 ml 9024 ml Output Total 2850 ml 850 ml 4900 ml Balance 350 ml 574 ml 4124 ml Intake Oral 0 ml 0 ml IV Total 3200 ml 1424 ml 8649 ml Packed Cells 375 ml Output Urine Total 2850 ml 850 ml 4900 ml Exam Patient is alert oriented comfortable Head and neck icterus Lungs clear Heart and vascular regular rate and rhythm normal S1-S2 Abdomen soft nontender nondistended with decreased bowel sounds Skin shows slight jaundice Lab and Diagnostics Result Diagram: 05/21/17 0440 05/21/17 0500 X-Rays, CTs and MRIs Chest x-ray IMPRESSION: New ET tube tip in expected position. Dictated by: Kwame De La Torre M.D. on 05/19/2017 at 8:[address] 1. Worsening hepatosplenomegaly and worsening portal hypertension, in this patient with prior evidence of portal hypertension during CT scanning 02/17/17. No ascites is found, however, and no definite malignancy is identified. 2. A colonic mass or other source of GI bleeding is not identified. However, given the portal hypertension present bleeding varicosities would be a likely potential source. 3. The liver is prominently heterogeneous, in a pattern suggestive of significant interval worsening of fatty infiltration, with an unusual multinodular pattern of what appears to be fatty infiltration in several portions of the liver. Underlying acute hepatitis may be superimposed. The likelihood of malignancy as cause of this appearance is considered low but remains possible (yet unlikely). Dictated by: Salty Daniel M.D. on 05/19/2017 at 9:[address] IMPRESSION: No CT evidence of acute intracranial pathology. Dictated by: Kwame De La Torre M.D. on 05/19/2017 at 8:59 12-lead ECG Sinus tach at [address] changes. Assessment & Plan 37 year old male with hx of alcohol abuse and ibuprofen abuse who presented obtunded to the ED from home after being found down, hypoxic, and covered in black/red emesis. EGD was done on admission emergently after 5 units of blood FFP is and platelets. EGD showed portal hypertensive gastropathy esophagitis healing ulcer and dieulafoy in the proximal body which was treated. Next morning NG lavage clear. Today, Hemodynamics stable. Hemoglobin stable; 7.1- 7.5-7.6-7.3. Minimal evidence of continuous GI bleed. Unfortunately, evidence of alcoholic hepatitis noted. Discriminant factor today is less than 32 based on today's INR and total bilirubin. 1 he is comfortable he is appropriate and oriented 3. We will follow to see if he has any evidence of encephalopathy and this hospitalization. 2. Otherwise extubated successfully. He has no chest pain or shortness of breath.. Patient is currently hemodynamically stable. 3 I suspect the slow trending of hemoglobin downward the day before was probably from mild diffuse bleeding from portal hypertensive gastropathy. This is to be expected. However to minimize this, would recommend permissive anemia. Would not transfuse the patient unless hemoglobin level goes below 7. However if there is evidence of coffee-ground emesis NG suction showing coffee- ground material or hemodynamic instability, then I would aggressively transfuse. As long as there is no clinical evidence of GI bleeding, I would not transfuse blood unless hemoglobin level goes below 7. Would also like to keep the INR less than 1.3 if possible. And recommend trying to keep the platelets above 50,000 if possible. 4 Thus far there is minimal evidence of fluid overload. Once he starts developing ascites or third spacing, then consider using Lasix and spironolactone. 5 Continue IV Protonix continue IV octreotide continue IV antibiotics for total 5 days. 6 Recommend cessation of alcohol. 7 alcoholic hepatitis noted. Total bili 2.6-3.3 AST 903-969 ALT 217-251 and albumin 2.8. Elevated AST is probably due to CK from his fall. Discriminant factor less than 32 based on today's PT and total bilirubin. Concern about alcohol withdrawal during this hospitalization. GI Prophylaxis: Proton Pump Inhibitor (GGT) Resuscitation Status: CPR: Attempt Resuscitation Stef Shin MD May 21, 2017 10:46 -Ray taken two Klonopin this morning as well Continue thiamine We will start Librium 10 mg by mouth every 6 hours scheduled. Disposition: Patient is being admitted to inpatient status with expected length of stay greater than two midnights due to to severity of presentation, duration of treatment, and risks of adverse events disposition Full code GI Prophylaxis: Proton Pump Inhibitor (GGT) IV twice a day Resuscitation Status: CPR: Attempt Resuscitation The patient's high risk protocol at all or rebleed. He has multiple active medical problems going on including acute blood loss anemia, GI bleed as well as alcohol dependence and hypokalemia. GI Prophylaxis: Proton Pump Inhibitor (GGT) Resuscitation Status: CPR: Attempt Resuscitation Stef Shin MD May 21, 2017 10:46
[2017-05-21] MEDS: cefTRIAXone Inj 2,000 MG in Dextrose 5% Minibag Plus 50 ML IV SCH (11:37)
--- NOTE | 2017-05-21 17:25 | NUR ---
Social Work- Chemical Dependency Assessment Data: Pt is a 37 year old male admitted for GI Bleed per H&P. Pt has history of etoh use. Pt regularly drinks 1/2 to a fifth of whiskey daily. JUSTO met with pt at bedside to complete assessment. Pt is agreeable to assessment. Current Circumstances/Reason for Referral: Pt was found down in his home covered in vomit. Pt regularly drinks 1/2 to a fifth of whiskey daily History of Substance Use: Pt regularly drinks 1/2 to a fifth of whiskey daily. Pt has been drinking for at least four years. Pt also has a history of heroin addiction for which he went to inpatient treatment. History of Treatment Programs: Inpatient tx in [place], IOP in [place] History of Withdrawal Symptoms: Pt reports no withdrawal symptoms. Family History: Pt's father has a history of etoh abuse, sober 25 years. No other family history History of Sobriety and Supports: Four years ago, pt was sober for 6 years after inpatient treatment in [place]. Pt states that his father is very connected to AA and pt plans on obtaining that support as well. Pt is agreeable to outpt CD resources. Pt identifies his family and friends as a support for his sobriety. Patients Perception of use: Pt is aware that his drinking is problematic and correctly identified his drinking as the reason for his hospitalization. Pt is very motivated to stop using etoh. Pt feels confident that he will be able to stop using independently but is agreeable to outpt CD resources at bedside. Suicide Risk assessment: Pt denies any SI or HI at this time. Pt's drinking was not a suicide attempt. Recommendations for referral and follow up: Pt provided with [facility] and outpt CD resources at bedside. Pt is agreeable to engaging with AA after this hospitalization. Pt confirms his family will transport him home at d/c. No additional needs. SAUL Starks
--- NOTE | 2017-05-21 17:35 | NUR ---
Social Work- Initial Assessment/Multidisciplinary Rounds Data: See Initial Assessment and Chemical Dependency Assessment. Pt is a 37 year old male admitted for GI Bleed per H&P. Pt has no insurance and no PCP provider. Pt discussed in multidisciplinary rounds, CD assessment order. SW acknowledged CD assessment order. SW met with pt and brother Santos at bedside regarding d/c planning. Santos is patient's designated d/c planning contact. Pt lives in [place] with his SO where he is independent at baseline. Pt is independent with ADLs and self-care. Pt does not drive. Pt has no insurance due to his financial status, RCA notified. care aid application provided to pt at bedside. Pt oriented to financial agent in pt guide as well. Pt to d/c home with his SO to transport via POV. Pt declined discharge planning checklist at bedside. R[employer] and outpt CD resources provided at bedside. No additional d/c needs anticipated, SW will continue to follow. Assessment: Pt who is independent with ADLs and self-care Plan: Pt to d/c home with his SO to transport via POV. Dorothy Care itzel provided. [employer] and outpt CD resources provided at bedside. No additional d/c needs anticipated, SW will continue to follow. Barbara Marcus MSW Addendum: 05/21/17 at 1742 by VICK MARCUS Amended: Links added.
--- NOTE | 2017-05-21 17:45 | PROG NOTE ---
[address] [address] PROGRESS NOTE PATIENT: DANITZA RILEY : 1980 MR#: [id number] ADMIT: 05/19/2017 JOB ID: [id number] DATE: 05/21/2017 PULMONARY PROGRESS NOTE: The patient is a 37-year-old man admitted with upper GI bleed in the setting of alcohol abuse, cirrhosis, with respiratory failure. INTERVAL HISTORY: He was extubated yesterday and has been stable from a respiratory standpoint overnight. No additional bleeding. Denies any chest pain, shortness of breath. He does have mild epigastric pain. REVIEW OF SYSTEMS: As above. PHYSICAL EXAMINATION: Vital signs reviewed. Afebrile. Pulse 84, respirations 16, BP 106/60, sats 99% on 2 L nasal cannula. General: Alert, oriented, conversant. Chest is clear. Abdomen is soft, nontender. LABORATORIES: Reviewed. Hemoglobin 7.3, stable. ASSESSMENT AND RECOMMENDATIONS: 1. Acute hypoxic respiratory failure-extubated on May 20, doing well. 2. 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 3. Acute blood loss anemia. 4. Cirrhosis with portal hypertension. 5. Alcohol abuse. A 37-year-old man found down surrounded by blood brought into the emergency department intubated, found to have a hemoglobin of 5 and findings on endoscopy as described above. The Dieulafoy's lesion was clipped and injected with epinephrine. He did have a slight drift down in his hemoglobin as of yesterday morning, but since yesterday morning his hemoglobin has been stable in the low to mid 7 range and he is hemodynamically stable. He is on a PPI and octreotide drip and getting ceftriaxone for SBP prophylaxis. GI is following. He is stable from a pulmonary standpoint post extubation, and I am going to sign off. Please call the pulmonary service for any additional questions.
--- NOTE | 2017-05-21 18:24 | NUR ---
O2 Assumed care of Pt from Leanne Delgado RN after he transferred from CCU room 2018 to PCC room 2030. Pt removed his own O2 this afternoon, denied increase in SOB, SPO2 sat 97% when checked on RA.
[2017-05-22] VITALS (8 sets, daily range): BP systolic 115–124; BP diastolic 70–73; PULSE 76–93; RESP 16–23; O2SAT 96–98
[2017-05-22] MEDS: Pantoprazole 8 mg/Hr Infusion IV SCH ×6 (00:05→23:41)
[2017-05-22] MEDS: Octreotide Inj 500 MCG in 0.9% Sodium Chloride 99 ML IV SCH ×3 (00:05→22:00)
[2017-05-22] MEDS: 0.9% Sodium Chloride 1,000 ML IV SCH ×3 (00:09→22:00)
[2017-05-22 04:33] LABS: BASOPHILS % (AUTO) 0.3 % (0-3); EOSINOPHILS % (AUTO) 1.1 % (0-5); MONOCYTES % (AUTO) 20.7 % (4-12); Mean Corpuscular Hemoglobin 28.4 pg (27.0-35.0); Mean Corpuscular Volume 87.7 fL (81-100); NEUTROPHILS % (AUTO) 56.6 % (40-74); Platelet Count 69 bil/L (150-400)
--- NOTE | 2017-05-22 05:15 | NUR ---
Bowel Movement Pt had bowel movement x1 this shift, reported "normal" for patient, patient denied any dark appearance or bleeding. Ambulating independently in room and tolerating well, though mildly dyspneic after exertion; pt denies feeling short of breath. CIWA scores 4, 2, and 2 respectively. Pt requested medications for sleep and pain at HS; Melatonin administered with Librium and patient reported improvement in headache, though unable to rest for significant periods throughout shift. VSS, tele SR 80s.
[2017-05-22] MEDS: Multivit-Miner-Folic Acid-Iron Tablet PO SCH (08:30)
[2017-05-22] MEDS: Mupirocin 2% 22 Gm Ointment TOPICAL SCH ×2 (08:30→20:30)
[2017-05-22] MEDS: FOLIC ACID IV SCH (08:33)
[2017-05-22] MEDS: DEXTROSE 5% IV SCH (08:33)
[2017-05-22] MEDS: THIAMINE IV SCH (08:33)
[2017-05-22] MEDS: TerBINafine 1% 15 Gm Cream TOPICAL SCH (08:34)
--- NOTE | 2017-05-22 09:50 | PCM.PNMED ---
Subjective Date of Service May 22, 2017 Subjective Overnight: No events reported. Pt states that he had a restless night sleep secondary to consistent interruptions and a persistent cough. Reports 2 normal bowel movements overnight/yesterday. Serial scores remained low 2-4. Denies fever chills chest pain shortness of breath abdominal pain VSS remained stable throughout the night. Good urinary output. Hemoglobin stable ~7.4. Potassium normalized. Remains on Protonix and octreotide drips. Exam Vital Signs Vital Sign - Last Date Time Temp Pulse Resp B/P Pulse Ox O2 Delivery O2 Flow Rate FiO2 05/22/17 08:27 36.6 76 18 124/72 97 Room Air 05/21/17 08:30 2.00 05/20/17 15:39 30 Intake and Output 05/21/17 05/21/17 05/22/17 Cumulative From/Thru 15:00 23:00 07:00 05/19/17 17:20 - 05/22/17 06:10 Intake Total 1385 ml 1915 ml 81316 ml Output Total 500 ml 5400 ml Balance 1385 ml 1415 ml 6924 ml Intake Oral 480 ml 480 ml IV Total 1385 ml 1435 ml 77379 ml Packed Cells 375 ml Output Urine Total 500 ml 5400 ml # Bowel Movements 1 1 Exam General: Awake and alert lying in hospital bed in no acute distress, well- developed, well-nourished, appropriately interactive HEENT: Normocephalic, atraumatic. External ears without defect. Pupils equal, round, and reactive to light and accommodation. Anicteric sclerae, moist conjunctivae, and no lid lag. Oropharynx free of erythema and cobble stoning with moist mucosa. Neck: Supple with full range of motion. No jugular venous distension. Cardiovascular: Regular rate and rhythm with no murmurs, rubs, or gallops appreciated Pulmonary: Clear to auscultation bilaterally with no crackles, wheezes, or rhonchi. Normal respiratory effort with no use of accessory muscles. Abdomen: Bowel tones present. Soft nontender palpated 4 quadrants, nondistended Extremities: No clubbing, cyanosis, edema, or lymphadenopathy appreciated. Skin: Normal temperature, turgor, and texture; no rash, ulcers, or subcutaneous nodules appreciated. Neurological: Cranial nerves grossly intact Psychiatric: Normal mood and affect. Alert and oriented to person, place, and time. IVs and Medications Medications Reviewed: Medications were reviewed in detail Lab and Diagnostics Result Diagram: 05/22/1741905/22/17419 X-Rays, CTs and MRIs . X-RAY CHEST ONE VIEW, PORTABLE IMPRESSION: Ne ET tube tip in expected position. Dictated by: Kwame De La Torre M.D. on 05/19/2017 X-RAY CHEST ONE VIEW, PORTABLE IMPRESSION: Left lower lobe pneumonia. Endotracheal tube position normal. What appears to be a PICC line from left-sided approach extends into the distal SVC. Please note, however, that multiple electrode leads overlie the chest superimposed on this area and the exact positioning of what is felt to be the PICC line is uncertain. The PICC line fluoroscopy showed excellent positioning of the PICC line when it was placed yesterday. It was better visualized by that study. Dictated by: Salty Daniel M.D. on 05/20/2017 X-RAY CHEST ONE VIEW, PORTABLE IMPRESSION: Decreasing left basilar atelectasis versus aspiration or pneumonia. Dictated by: Yunier Rust [facility] Interpreted: Salty Daniel MD CT ABDOMEN AND PELVIS WITH CONTRAST IMPRESSION: 1. Worsening hepatosplenomegaly and worsening portal hypertension, in this patient with prior evidence of portal hypertension during CT scanning 02/17/17. No ascites is found, however, and no definite malignancy is identified. 2. A colonic mass or other source of GI bleeding is not identified. However, given the portal hypertension present bleeding varicosities would be a likely potential source. 3. The liver is prominently heterogeneous, in a pattern suggestive of significant interval worsening of fatty infiltration, with an unusual multinodular pattern of what appears to be fatty infiltration in several portions of the liver. Underlying acute hepatitis may be superimposed. The likelihood of malignancy as cause of this appearance is considered low but remains possible (yet unlikely). Dictated by: Salty Daniel M.D. on 05/19/2017 CT BRAIN WITHOUT CONTRAST IMPRESSION: No CT evidence of acute intracranial pathology. Dictated by: Kwame De La Torre M.D. on 05/19/2017 CT CERVICAL SPINE WITHOUT CONTRAST IMPRESSION: No acute bony injuries of the cervical and upper thoracic spine from the foramen magnum to the T4 level. Mild lower cervical spine disc degeneration. Dictated by: Doug Zhu M.D. on 05/19/2017 12-lead ECG Sinus tach at [address] changes. Assessment & Plan 37 male PMH EtOH abuse admitted for anemia 2/2/ upper GI bleed and acute hypoxic respiratory failure secondary to EtOH abuse - found down emersed in bloody emesis. Severe Acute GI bleed; POA; ongoing -Patient found down with red/black emesis and stool -Upper endoscopy showed dieulafoy lesion -Hx of severe Etoh abuse and NSAIDs -Hgb was 5 on admission -Octreotide and protonix drips, for 5 days each -Hgb and Hct remain low but stable -Continue to monitor Hematocrit -Antibiotics for SBP prophylaxis Acute blood loss anemia, POA and stable. -HGB/Hct as above -Continue to monitor as above Acute kidney injury; POA; resolved. -Likely due to acute blood loss and dehydration leading to prerenal azotemia -CK elevated but less than 1000 Continue to follow clinically Severe anion gap metabolic acidosis and lactic acidosis; POA; resolved.. -Elevated lactic acidosis with TAMMIE -Lactic acid and creatinine normalized Continue to follow clinically Alcoholic hepatitis with cirrhosis; POA; improving. -Elevated transaminases and alcoholic pattern and prolonged QT on admission -Transaminases continue to trend down Hyperglycemia; POA; improved. -No history of diabetes blood sugars 190+; questionable if due to stress reaction -A1c pending Correctional lispro Alcohol dependence; POA; no evidence of withdrawal -Reportedly drinks half to a full fifth whiskey a day -Librium 5 mg every 6 Continue thiamine Acute hypoxic respiratory failure; POA; resolved -Patient extubated 05/20/2017 -Maintaining saturation on RA Elevated bilirubin. On admission ongoing -Bilirubin continues to elevate now with some right upper quadrant tenderness -Right upper quadrant abdominal ultrasound pending Disposition: Patient will remain inpatient status to continue with IV drips until at least 05/24/2017 at which point patient most likely discharged to home GI Prophylaxis: Proton Pump Inhibitor (GGT) Resuscitation Status: CPR: Attempt Resuscitation LIZETTE VALENZUELA DO May 22, 2017 09:50
[2017-05-22] MEDS: cefTRIAXone Inj 2,000 MG in Dextrose 5% Minibag Plus 50 ML IV SCH (11:08)
--- NOTE | 2017-05-22 12:14 | PCM.PNMED ---
Subjective Date of Service May 22, 2017 Subjective GASTROENTEROLOGY PROGRESS NOTE Attending Physician: Stef Shin MD Resident Physician: Elle Massey DO No acute events overnight. He is doing well and is without abdominal pain, bloody or dark colored stool, diarrhea or constipation. He is alert and oriented to person, place and time and without obvious signs of alcohol withdrawal. Per nursing, patient with low CIWA scores; most recently 2-4. He denies fever, chills, chest pain, tremors or shortness of breath. He remains hemodynamically stable and maintaining Hb > 7.0. Exam Vital Signs Vital Sign - Last Date Time Temp Pulse Resp B/P Pulse Ox O2 Delivery O2 Flow Rate FiO2 05/22/17 10:37 85 05/22/17 08:27 36.6 18 124/72 97 Room Air 05/21/17 08:30 2.00 05/20/17 15:39 30 Intake and Output 05/21/17 05/21/17 05/22/17 Cumulative From/Thru 15:00 23:00 07:00 05/19/17 17:20 - 05/22/17 06:10 Intake Total 1385 ml 1915 ml 14068 ml Output Total 500 ml 5400 ml Balance 1385 ml 1415 ml 6924 ml Intake Oral 480 ml 480 ml IV Total 1385 ml 1435 ml 86071 ml Packed Cells 375 ml Output Urine Total 500 ml 5400 ml # Bowel Movements 1 1 Exam General: Alert, Oriented X3, Cooperative, No acute distress Head: Normocephalic, atraumatic. External ears normal. Eyes: PERRLA, EOMI.~ Anicteric sclerae. Mouth: Mouth normal, Mucous membranes moist/pink Chest& Lungs:Clear to auscultation bilaterally with no crackles, wheezes, or rhonchi. Cardiovascular:Regular rate/rhythm, No murmurs/rubs/gallops Abdomen: Non-tender, Non-distended, No masses, Normoactive bowel tones, Soft Extremities: No cyanosis or edema bilaterally Neurological: Grossly neurologically intact. Normal speech IVs and Medications Medications Reviewed: Medications were reviewed in detail Lab and Diagnostics Laboratory Tests Test 05/22/17 04:20 White Blood Count 3.5th/mm3 (3.8-10.1) Red Blood Count 2.61mil/mm3 (4.40-5.80) Hemoglobin 7.4g/dL (13.8-17.2) Hematocrit 22.9% (41.0-50.0) Mean Corpuscular Volume 87.7fL (81-100) Mean Corpuscular Hemoglobin 28.4pg (27.0-35.0) Mean Corpuscular Hemoglobin Concent 32.3% (32.0-37.0) Red Cell Distribution Width 18.4% (12.3-15.4) Platelet Count 69bil/L (150-400) Neutrophils (%) (Auto) 56.6% (40-74) Lymphocytes (%) (Auto) 20.7% (14-46) Monocytes (%) (Auto) 20.7% (4-12) Eosinophils (%) (Auto) 1.1% (0-5) Basophils (%) (Auto) 0.3% (0-3) Sodium Level 139mEq/L (134-144) Potassium Level 3.7mEq/L (3.5-5.2) Chloride Level 105mEq/L (97-108) Carbon Dioxide Level 21mmol/L (18-29) Blood Urea Nitrogen 11mg/dL (6-20) Creatinine 0.63mg/dL (0.76-1.27) Estimat Glomerular Filtration Rate 151mL/min (>59) Glucose Level 122mg/dL (60-99) Calcium Level 7.4mg/dL (8.5-10.1) Total Bilirubin 4.1mg/dL (0.0-1.2) Aspartate Amino Transf (AST/SGOT) 532U/L (0-50) Alanine Aminotransferase (ALT/SGPT) 194U/L (0-44) Alkaline Phosphatase 97U/L (25-150) Total Protein 6.0g/dL (6.4-8.4) Albumin 3.0g/dL (3.4-5.0) Procalcitonin 0.15ng/mL (0.00-0.08) Microbiology 05/19/17 MRSA (PCR) - positive. Result Diagram: 05/22/1741905/22/17419 X-Rays, CTs and MRIs . X-RAY CHEST ONE VIEW, PORTABLE IMPRESSION: Ne ET tube tip in expected position. Dictated by: Kwame De La Torre M.D. on 05/19/2017 X-RAY CHEST ONE VIEW, PORTABLE IMPRESSION: Left lower lobe pneumonia. Endotracheal tube position normal. What appears to be a PICC line from left-sided approach extends into the distal SVC. Please note, however, that multiple electrode leads overlie the chest superimposed on this area and the exact positioning of what is felt to be the PICC line is uncertain. The PICC line fluoroscopy showed excellent positioning of the PICC line when it was placed yesterday. It was better visualized by that study. Dictated by: Salty Daniel M.D. on 05/20/2017 CT ABDOMEN AND PELVIS WITH CONTRAST IMPRESSION: 1. Worsening hepatosplenomegaly and worsening portal hypertension, in this patient with prior evidence of portal hypertension during CT scanning 02/17/17. No ascites is found, however, and no definite malignancy is identified. 2. A colonic mass or other source of GI bleeding is not identified. However, given the portal hypertension present bleeding varicosities would be a likely potential source. 3. The liver is prominently heterogeneous, in a pattern suggestive of significant interval worsening of fatty infiltration, with an unusual multinodular pattern of what appears to be fatty infiltration in several portions of the liver. Underlying acute hepatitis may be superimposed. The likelihood of malignancy as cause of this appearance is considered low but remains possible (yet unlikely). Dictated by: Salty Daniel M.D. on 05/19/2017 CT BRAIN WITHOUT CONTRAST IMPRESSION: No CT evidence of acute intracranial pathology. Dictated by: Kwame De La Torre M.D. on 05/19/2017 CT CERVICAL SPINE WITHOUT CONTRAST IMPRESSION: No acute bony injuries of the cervical and upper thoracic spine from the foramen magnum to the T4 level. Mild lower cervical spine disc degeneration. Dictated by: Doug Zhu M.D. on 05/19/2017 12-lead ECG Sinus tach at [address] changes. Assessment & Plan 37 male a history of alcohol abuse and ibuprofen abuse who presented obtunded to the ED after being found down, hypoxic, and covered in black/red emesis. Admitted for anemia secondary to upper GI bleed and acute hypoxic respiratory failure. Acute upper GI bleed. - Secondary to portal hypertensive gastropathy, esophagitis and Dieulafoy lesion visualized on EGD at time of admission. - Pt remains hemodynamically stable; maintaining Hb/Hct without signs/symptoms of continuous GI bleeding. - Unless there is clinical evidence of GI bleeding, recommend transfusion threshold of Hb < 7.0. If possible, maintain platelets above 50,000 and INR > 1.3. - Patient clinically without signs/symptoms of fluid overload. - Continue IV Protonix and octreotide as well as IV antibiotics for total of 5 days. - Counseled regrading cessation of alcohol. Alcoholic hepatitis. - Clinically no signs of encephalopathy. - LFTs trending down with the exception of bilirubin which has increased since yesterday. Total bilirubin now 4.1. Discriminant factor remains < 32. I expect the bilirubin to fall last - Monitor for signs/symptoms of alcohol withdrawal and continue to monitor LFTs. I saw and examined the patient with the resident. Agree with above. GI Prophylaxis: Proton Pump Inhibitor (GGT) Resuscitation Status: CPR: Attempt Resuscitation Elle Massey DO May 22, 2017 12:01 Stef Shin MD May 24, 2017 08:24 Resuscitation Status: CPR: Attempt Resuscitation Elle Massey DO May 22, 2017 12:01
--- NOTE | 2017-05-22 14:44 | DRSVH ---
PROCEDURE: X-RAY CHEST ONE VIEW, PORTABLE ([id number]) INDICATIONS: Pneumonia TECHNIQUE: One view of the chest was acquired. COMPARISON: Merged With [facility], CR, XR CHEST 1VW (PORTABLE), 05/20/2017, 5:18. FINDINGS: Surgical changes and devices: Stable position of left PICC. Lungs and pleura: Interval decrease in left basilar airspace opacity. Mediastinum: Mediastinal contours appear normal. Heart size is normal. Bones and chest wall: No suspicious bony lesions. Overlying soft tissues appear unremarkable. IMPRESSION: Decreasing left basilar atelectasis versus aspiration or pneumonia. Dictated by: Yunier Rust RR Interpreted: Salty Daniel MD on 05/22/2017 at 10:52 Approved by: Salty Daniel M.D. on 05/22/2017 at 14:42
--- NOTE | 2017-05-22 17:43 | NUR ---
Cough Patient c/o persistent cough preventing him from sleeping. PRN Tessalon pearls ordered and given per MD. Patient states they are helpful.
--- NOTE | 2017-05-22 20:11 | DRSVH ---
PROCEDURE: US ABDOMEN INDICATIONS: Elevated Bili TECHNIQUE: Real-time scanning was performed of the abdominal and retroperitoneal organs, with image documentatio n. COMPARISON: [facility], CT, CT ABD PELVIS W CON, 05/19/2017, 8:38. FINDINGS: Liver length: 21.75 cm Gallbladder Wall Thickness: 3.30 mm CHD: 4.60 mm CBD: 4.90 mm Spleen length: 17.45 cm Right kidney length: 12.59 cm Left kidney length: 12.45 cm Aorta(Proximal): 2.95 cm Aorta(Mid): 1.86 cm Aorta(Distal): 1.48 cm Liver: Liver is enlarged and diffusely increased in echogenicity and mildly heterogeneous. No discre te focal hepatic abnormality seen. Gallbladder: Gallbladder sludge present in gallbladder wall is thickened measuring 3.9 cm. Biliary ducts: Intrahepatic bile ducts are non-dilated. Extrahepatic bile duct caliber is normal. Normal is 6-7 mm or less in diameter, or 10 mm or less post-cholecystectomy. Pancreas: Not well-seen. Spleen: Spleen is enlarged in size and homogeneous in echotexture. Kidneys: Kidneys are normal in size and echotexture. No hydronephrosis or nephrolithiasis. No fabi d masses. Aorta: Visualized aorta is normal in caliber at less than 3 cm. Iliacs: Proximal common iliac arteries are normal in caliber at less than 2.5 cm. IVC: Intrahepatic inferior vena cava is patent. Miscellaneous: Trace right upper quadrant free fluid. IMPRESSION: 1. Hepatic enlargement with increase in hepatic parenchymal echogenicity as well as coarsened appeara nce. If indicated hepatic protocol CT or MRI could be performed for further evaluation. 2. Splenomegaly suggestive of portal hypertension. Correlate clinically. 3. Gallbladder wall thickening and developing cholecystitis cannot be excluded. Correlate clinically . Dictated by: Yunier HERNANDEZ Interpreted: Salty Daniel MD on 05/22/2017 at 16:50 Approved by: Salty Daniel M.D. on 05/22/2017 at 20:09
[2017-05-23 04:10] VITALS: BP 119/73; PULSE 84; RESP 20; O2SAT 97
[2017-05-23 04:46] LABS: BASOPHILS % (AUTO) 0.3 % (0-3); EOSINOPHILS % (AUTO) 1.9 % (0-5); MONOCYTES % (AUTO) 22.9 % (4-12); Mean Corpuscular Hemoglobin 28.3 pg (27.0-35.0); Mean Corpuscular Volume 87.6 fL (81-100); NEUTROPHILS % (AUTO) 52.3 % (40-74); Platelet Count 75 bil/L (150-400)
--- NOTE | 2017-05-23 06:09 | NUR ---
CIWA Patient CIWA scores this shift 4, 4, and 4, respectively, due to shakiness with movement or exertion. Patient denies any pain or nausea this shift, denied interventions for cough throughout shift. Independent in room and tolerates well, VSS, tele SR 80s-90s. Dyspneic on exertion, though patient denies ability to ambulate being affected.
[2017-05-23 07:36] VITALS: BP_SYST 114; BP_SYST 127; BP_DIAS 67; BP_DIAS 83; PULSE 110; PULSE 80; RESP 14; RESP 16; O2SAT 98
[2017-05-23] MEDS: Mupirocin 2% 22 Gm Ointment TOPICAL SCH ×2 (08:30→22:25)
[2017-05-23] MEDS: Pantoprazole 8 mg/Hr Infusion IV SCH ×4 (08:51→17:55)
[2017-05-23] MEDS: Octreotide Inj 500 MCG in 0.9% Sodium Chloride 99 ML IV SCH ×2 (08:51→17:55)
[2017-05-23] MEDS: Multivit-Miner-Folic Acid-Iron Tablet PO SCH (08:51)
[2017-05-23] MEDS: TerBINafine 1% 15 Gm Cream TOPICAL SCH (08:57)
--- NOTE | 2017-05-23 09:39 | PCM.PNMED ---
Subjective Date of Service May 23, 2017 Subjective GASTROENTEROLOGY PROGRESS NOTE Attending Physician: Stef Shin MD Resident Physician: Elle Massey DO No acute events overnight. Patient is without complaint this morning. He is sitting up in bed and appears comfortable. He states that he was up frequently yesterday and ambulated throughout the day in his room. He denies dizziness, headache, difficulty walking or shortness of breath. Additionally he denies abdominal pain, nausea, vomiting, diarrhea, constipation, bloody or dark tarry stool. He reports a persistent cough productive of clear sputum which is relieved with Tessalon pearls. Per nursing patient's CIWA scores remain low; most recently 4. Exam Vital Signs Vital Sign - Last Date Time Temp Pulse Resp B/P Pulse Ox O2 Delivery O2 Flow Rate FiO2 05/23/17 07:36 36.6 110 14 114/67 98 Room Air 05/21/17 08:30 2.00 05/20/17 15:39 30 Intake and Output 05/22/17 05/22/17 05/23/17 Cumulative From/Thru 15:00 23:00 07:00 05/19/17 17:20 - 05/23/17 06:35 Intake Total 2514 ml 2292 ml 67406 ml Output Total 5400 ml Balance 2514 ml 2292 ml 56812 ml Intake Oral 1236 ml 800 ml 2516 ml IV Total 1278 ml 1492 ml 10674 ml Packed Cells 375 ml Output Urine Total 5400 ml # Voids 2 6 8 # Bowel Movements 2 3 Exam General: Alert, Oriented X3, Cooperative, No acute distress HEENT: Normocephalic, PERRLA, anicteric sclerae. Lungs:Clear to auscultation bilaterally Cardiovascular: Regular rate/rhythm. No murmurs/rubs/gallops Abdomen: Soft, mildly distended, non-tender. Bowel tones present. No masses. Extremities: No cyanosis or edema Neurological: Grossly neurologically intact. Normal speech IVs and Medications Medications Reviewed: Medications were reviewed in detail Lab and Diagnostics Laboratory Tests Test 05/23/17 04:30 White Blood Count 3.7th/mm3 (3.8-10.1) Red Blood Count 2.83mil/mm3 (4.40-5.80) Hemoglobin 8.0g/dL (13.8-17.2) Hematocrit 24.8% (41.0-50.0) Mean Corpuscular Volume 87.6fL (81-100) Mean Corpuscular Hemoglobin 28.3pg (27.0-35.0) Mean Corpuscular Hemoglobin Concent 32.3% (32.0-37.0) Red Cell Distribution Width 18.7% (12.3-15.4) Platelet Count 75bil/L (150-400) Neutrophils (%) (Auto) 52.3% (40-74) Lymphocytes (%) (Auto) 21.8% (14-46) Monocytes (%) (Auto) 22.9% (4-12) Eosinophils (%) (Auto) 1.9% (0-5) Basophils (%) (Auto) 0.3% (0-3) Sodium Level 136mEq/L (134-144) Potassium Level 4.2mEq/L (3.5-5.2) Chloride Level 103mEq/L (97-108) Carbon Dioxide Level 19mmol/L (18-29) Blood Urea Nitrogen 7mg/dL (6-20) Creatinine 0.55mg/dL (0.76-1.27) Estimat Glomerular Filtration Rate 176mL/min (>59) Glucose Level 121mg/dL (60-99) Calcium Level 7.8mg/dL (8.5-10.1) Total Bilirubin 4.3mg/dL (0.0-1.2) Aspartate Amino Transf (AST/SGOT) 278U/L (0-50) Alanine Aminotransferase (ALT/SGPT) 154U/L (0-44) Alkaline Phosphatase 114U/L (25-150) Total Protein 6.3g/dL (6.4-8.4) Albumin 3.3g/dL (3.4-5.0) Procalcitonin 0.15ng/mL (0.00-0.08) Microbiology 05/19/17 MRSA (PCR) -Mrsa Positive Result Diagram: 05/23/1742905/23/17429 X-Rays, CTs and MRIs 05/19/17 - CT ABDOMEN AND PELVIS WITH CONTRAST IMPRESSION: 1. Worsening hepatosplenomegaly and worsening portal hypertension, in this patient with prior evidence of portal hypertension during CT scanning 02/17/17. No ascites is found, however, and no definite malignancy is identified. 2. A colonic mass or other source of GI bleeding is not identified. However, given the portal hypertension present bleeding varicosities would be a likely potential source. 3. The liver is prominently heterogeneous, in a pattern suggestive of significant interval worsening of fatty infiltration, with an unusual multinodular pattern of what appears to be fatty infiltration in several portions of the liver. Underlying acute hepatitis may be superimposed. The likelihood of malignancy as cause of this appearance is considered low but remains possible (yet unlikely). Dictated and approved by: Salty Daniel M.D. on 05/19/2017 05/22/17 - US ABDOMEN IMPRESSION: 1. Hepatic enlargement with increase in hepatic parenchymal echogenicity as well as coarsened appearance. If indicated hepatic protocol CT or MRI could be performed for further evaluation. 2. Splenomegaly suggestive of portal hypertension. Correlate clinically. 3. Gallbladder wall thickening and developing cholecystitis cannot be excluded. Correlate clinically. Dictated and approved by Salty Daniel MD on 05/22/2017 at 16:50 05/22/17 - X-RAY CHEST ONE VIEW, PORTABLE IMPRESSION: Decreasing left basilar atelectasis versus aspiration or pneumonia. Approved by: Salty Daniel M.D. on 05/22/2017 at 14:42 Assessment & Plan 37-year-old male with a history of alcohol and ibuprofen abuse who presented to the ED after being found unresponsive and covered in bloody emesis at home. Admitted for severe anemia secondary to upper GI bleed and acute hypoxic respiratory failure. Acute upper GI bleed. - Secondary to portal hypertensive gastropathy, esophagitis and Dieulafoy lesion visualized on EGD at time of admission. - Pt remains hemodynamically stable; maintaining Hb/Hct without signs/symptoms of continuous GI bleeding; transfusion threshold of Hb < 7.0. - Continue Protonix bid and complete 5 day course of octreotide and antibiotics. - Patient ready to discharge for a GI standpoint. Recommend followup with GI in 1-2 weeks after discharge and outpatient rehab for alcohol abuse. Alcoholic hepatitis. - Clinically no signs of encephalopathy. - LFTs trending down with the exception of bilirubin which is again slightly increased. Total bilirubin now 4.3. Discriminant factor remains < 32. I expect bilirubin to improve since they tend to improve later. - Abd US on 05/22 findings suggestive of portal hypertension and possibly developing cholecystitis. Clinically the patient is without signs/symptoms of acute cholecystitis and LFTs continue to improve. - Recommend outpatient followup for HIDA scan. Pain Evaluation: Adequate Pain Control GI Prophylaxis: Proton Pump Inhibitor (GGT) Resuscitation Status: CPR: Attempt Resuscitation Elle Massey DO May 23, 2017 08:07 Stef Shin MD May 24, 2017 08:29 GI Prophylaxis: Proton Pump Inhibitor (GGT) Resuscitation Status: CPR: Attempt Resuscitation Elle Massey DO May 23, 2017 08:07
--- NOTE | 2017-05-23 11:45 | NUR ---
NUTRITION FOLLOW-UP: ASSESS: 37 YO male admitted to CCU after being found down, intubated in the field, with a significant GI bleed related to chronic alcoholism. Pt was able to be extubated 05/20. He has been tolerating PO well on a soft diet. PO 75-100%. CIWA scores have been low. GI continues to follow. PMHx: ETOH abuse, tinea corporis, shoulder strain. DIET: Soft, PO 75-100% LABS: Reviewed. Customer Service Correspondence Clerk .55, Glu 121, ca 7.8, t.bili 4.3, AST 278, ALT 154, alb 3.3 MEDICATIONS: Reviewed. MVI, thiamine, folic acid GI symptoms / stool: BMx3 05/22 Skin Integrity: No issues reported. ANTHROPOMETRICS: Current Wt:116.7 kg BMI:34.9 kg/m2 admit wt: 112kg IBW: 77.6 kg ESTIMATED NEEDS: BMI Calories: 2335-2565kcal/day (20-22kcal/kg) Protein: 95-120g/day (1.2-1.5g/kg IBW) NUTRITION DIAGNOSIS: 1) No nutrition diagnosis at this time INTERVENTION: 1) Continue current diet. PO is adequate for needs. MONITOR/EVALUATE: PO, wt, GI, labs, POC, nutrition status. Will continue to monitor per low nutrition risk guidelines
[2017-05-23] MEDS: cefTRIAXone Inj 2,000 MG in Dextrose 5% Minibag Plus 50 ML IV SCH (11:56)
[2017-05-23 15:19] VITALS: BP 118/76; PULSE 77; RESP 20; O2SAT 98
--- NOTE | 2017-05-23 17:18 | PCM.PNMED ---
Subjective Date of Service May 23, 2017 Subjective Reports restless night secondary to frequent urination. Cough improved greatly after Tessalon pearls. Tele showed sinus rhythm throughout the night. CIWA scores remain at 4. Exam Vital Signs Vital Sign - Last Date Time Temp Pulse Resp B/P Pulse Ox O2 Delivery O2 Flow Rate FiO2 05/23/17 04:10 37.0 84 20 119/73 97 Room Air 05/21/17 08:30 2.00 05/20/17 15:39 30 Intake and Output 05/22/17 05/22/17 05/23/17 Cumulative From/Thru 15:00 23:00 07:00 05/19/17 17:20 - 05/23/17 06:35 Intake Total 2514 ml 2292 ml 56664 ml Output Total 5400 ml Balance 2514 ml 2292 ml 52410 ml Intake Oral 1236 ml 800 ml 2516 ml IV Total 1278 ml 1492 ml 55312 ml Packed Cells 375 ml Output Urine Total 5400 ml # Voids 2 6 8 # Bowel Movements 2 3 Exam General: Awake and alert lying in hospital bed in no acute distress, well- developed, well-nourished, flat affect HEENT: Normocephalic, atraumatic. External ears without defect. Pupils equal, round, and reactive to light and accommodation. Neck: Supple with full range of motion. No jugular venous distension. Cardiovascular: Regular rate and rhythm with no murmurs, rubs, or gallops appreciated Pulmonary: Clear to auscultation bilaterally with no crackles, wheezes, or rhonchi. Normal respiratory effort with no use of accessory muscles. Abdomen: Bowel tones present. Soft nontender palpated 4 quadrants Extremities: No clubbing, cyanosis, edema. Mild tremulousness in upper extremities Skin: Normal temperature, turgor, and texture Neurological: Cranial nerves grossly intact Psychiatric: Flat affect. Alert and oriented to person, place, and time. Lab and Diagnostics Result Diagram: 05/23/1742905/23/17429 X-Rays, CTs and MRIs . X-RAY CHEST ONE VIEW, PORTABLE IMPRESSION: Ne ET tube tip in expected position. Dictated by: Kwame De La Torre M.D. on 05/19/2017 X-RAY CHEST ONE VIEW, PORTABLE IMPRESSION: Left lower lobe pneumonia. Endotracheal tube position normal. What appears to be a PICC line from left-sided approach extends into the distal SVC. Please note, however, that multiple electrode leads overlie the chest superimposed on this area and the exact positioning of what is felt to be the PICC line is uncertain. The PICC line fluoroscopy showed excellent positioning of the PICC line when it was placed yesterday. It was better visualized by that study. Dictated by: Salty Daniel M.D. on 05/20/2017 X-RAY CHEST ONE VIEW, PORTABLE IMPRESSION: Decreasing left basilar atelectasis versus aspiration or pneumonia. Dictated by: Yunier Rust [facility] Interpreted: Salty Daniel MD CT ABDOMEN AND PELVIS WITH CONTRAST IMPRESSION: 1. Worsening hepatosplenomegaly and worsening portal hypertension, in this patient with prior evidence of portal hypertension during CT scanning 02/17/17. No ascites is found, however, and no definite malignancy is identified. 2. A colonic mass or other source of GI bleeding is not identified. However, given the portal hypertension present bleeding varicosities would be a likely potential source. 3. The liver is prominently heterogeneous, in a pattern suggestive of significant interval worsening of fatty infiltration, with an unusual multinodular pattern of what appears to be fatty infiltration in several portions of the liver. Underlying acute hepatitis may be superimposed. The likelihood of malignancy as cause of this appearance is considered low but remains possible (yet unlikely). Dictated by: Salty Daniel M.D. on 05/19/2017 CT BRAIN WITHOUT CONTRAST IMPRESSION: No CT evidence of acute intracranial pathology. Dictated by: Kwame De La Torre M.D. on 05/19/2017 CT CERVICAL SPINE WITHOUT CONTRAST IMPRESSION: No acute bony injuries of the cervical and upper thoracic spine from the foramen magnum to the T4 level. Mild lower cervical spine disc degeneration. Dictated by: Doug Zhu M.D. on 05/19/2017 12-lead ECG Sinus tach at [address] changes. Assessment & Plan 37 male PMH EtOH abuse admitted for anemia 2/2/ upper GI bleed and acute hypoxic respiratory failure secondary to EtOH abuse - found down emersed in bloody emesis. Severe Acute GI bleed; POA; ongoing -Patient found down with red/black emesis and stool -Upper endoscopy showed dieulafoy lesion -Hx of severe Etoh abuse and NSAIDs -Hgb was 5 on admission -Octreotide and protonix drips, for 5 days each - last day tomorrow 05/24/2017 -Hgb and Hct remain low but stable -Continue to monitor Hematocrit -Antibiotics for SBP prophylaxis Acute blood loss anemia, POA and stable. -HGB/Hct as above -Continue to monitor as above Acute kidney injury; POA; resolved. -Likely due to acute blood loss and dehydration leading to prerenal azotemia -CK elevated but less than 1000 Continue to follow clinically -Creatinine is normalized Severe anion gap metabolic acidosis and lactic acidosis; POA; resolved.. -Elevated lactic acidosis with TAMMIE -Lactic acid and creatinine normalized Continue to follow clinically Alcoholic hepatitis with cirrhosis; POA; improving. -Elevated transaminases and alcoholic pattern and prolonged QT on admission -Transaminases continue to trend down Hyperglycemia; POA; improved. -No history of diabetes blood sugars 190+; questionable if due to stress reaction -A1c 5.7 Correctional lispro Alcohol dependence; POA; no evidence of withdrawal -Reportedly drinks half to a full fifth of whiskey a day -Librium 5 mg every 6 Continue thiamine Acute hypoxic respiratory failure; POA; resolved -Patient extubated 05/20/2017 -Maintaining saturation on RA Elevated bilirubin. On admission ongoing -Bilirubin continues to elevate now with some right upper quadrant tenderness -Right upper quadrant abdominal ultrasound pending Disposition: Patient will remain inpatient status to continue with IV drips until at least 05/24/2017 at which point patient most likely discharged to home Pain Evaluation: Adequate Pain Control GI Prophylaxis: Proton Pump Inhibitor (GGT) Resuscitation Status: CPR: Attempt Resuscitation LIZETTE VALENZUELA DO May 23, 2017 07:41
--- NOTE | 2017-05-23 17:22 | NUR ---
CIWA Patient restless and more tremulous than yesterday. CIWA score of %. Patient states he feels fine and does not believe he will go through withdrawal. Will continue to monitor.
[2017-05-23 23:00] VITALS: BP 126/73; PULSE 84; RESP 18; O2SAT 94
[2017-05-24 02:47] VITALS: BP 115/68; PULSE 87; RESP 20; O2SAT 90
[2017-05-24] MEDS: Pantoprazole 8 mg/Hr Infusion IV SCH ×2 (05:35)
[2017-05-24] MEDS: Octreotide Inj 500 MCG in 0.9% Sodium Chloride 99 ML IV SCH (05:35)
--- NOTE | 2017-05-24 06:11 | NUR ---
GI No S/Sx of bleeding noted. Remains on Protonix and Octreotide gtt. VSS. No overt complications noted. Pt is eager to go home.
[2017-05-24 08:20] VITALS: BP 114/71; PULSE 80; O2SAT 97
[2017-05-24] MEDS: Mupirocin 2% 22 Gm Ointment TOPICAL SCH (08:25)
[2017-05-24] MEDS: Multivit-Miner-Folic Acid-Iron Tablet PO SCH (08:25)
[2017-05-24] MEDS: TerBINafine 1% 15 Gm Cream TOPICAL SCH (10:39)
--- NOTE | 2017-05-24 11:08 | PCM.DC.MED ---
Discharge Summary Date of Service May 24, 2017 Dates of Hospitalization Date of Hospital Admission May 19, 2017 at 09:47 Date of Discharge: May 24, 2017 Providers: Admitting Physician: Malachi Jolly MD Primary Care Physician: Nopjonh Attending Physician: Serena Forbes MD Diagnosis at Time of Discharge Diagnosis at Time of Discharge Severe Acute GI bleed Acute blood loss anemia Acute kidney injury; POA Severe anion gap metabolic acidosis and lactic acidosis Alcoholic hepatitis with cirrhosis Hyperglycemia Alcohol dependence Acute hypoxic respiratory failure Elevated bilirubin Consultations Dr. Shin, gastroenterology Dr. Young, intensive care/pulmonology Procedures XRay, CTs & MRIs . X-RAY CHEST ONE VIEW, PORTABLE IMPRESSION: Ne ET tube tip in expected position. Dictated by: Kwame De La Torre M.D. on 05/19/2017 X-RAY CHEST ONE VIEW, PORTABLE IMPRESSION: Left lower lobe pneumonia. Endotracheal tube position normal. What appears to be a PICC line from left-sided approach extends into the distal SVC. Please note, however, that multiple electrode leads overlie the chest superimposed on this area and the exact positioning of what is felt to be the PICC line is uncertain. The PICC line fluoroscopy showed excellent positioning of the PICC line when it was placed yesterday. It was better visualized by that study. Dictated by: Salty Daniel M.D. on 05/20/2017 X-RAY CHEST ONE VIEW, PORTABLE IMPRESSION: Decreasing left basilar atelectasis versus aspiration or pneumonia. Dictated by: Yunier Rust [facility] Interpreted: Salty Daniel MD CT ABDOMEN AND PELVIS WITH CONTRAST IMPRESSION: 1. Worsening hepatosplenomegaly and worsening portal hypertension, in this patient with prior evidence of portal hypertension during CT scanning 02/17/17. No ascites is found, however, and no definite malignancy is identified. 2. A colonic mass or other source of GI bleeding is not identified. However, given the portal hypertension present bleeding varicosities would be a likely potential source. 3. The liver is prominently heterogeneous, in a pattern suggestive of significant interval worsening of fatty infiltration, with an unusual multinodular pattern of what appears to be fatty infiltration in several portions of the liver. Underlying acute hepatitis may be superimposed. The likelihood of malignancy as cause of this appearance is considered low but remains possible (yet unlikely). Dictated by: Salty Daniel M.D. on 05/19/2017 CT BRAIN WITHOUT CONTRAST IMPRESSION: No CT evidence of acute intracranial pathology. Dictated by: Kwame De La Torre M.D. on 05/19/2017 CT CERVICAL SPINE WITHOUT CONTRAST IMPRESSION: No acute bony injuries of the cervical and upper thoracic spine from the foramen magnum to the T4 level. Mild lower cervical spine disc degeneration. Dictated by: Doug Zhu M.D. on 05/19/2017 US ABDOMEN IMPRESSION: 1. Hepatic enlargement with increase in hepatic parenchymal echogenicity as well as coarsened appearance. If indicated hepatic protocol CT or MRI could be performed for further evaluation. 2. Splenomegaly suggestive of portal hypertension. Correlate clinically. 3. Gallbladder wall thickening and developing cholecystitis cannot be excluded. Correlate clinically. Dictated by: Yunier Rust [facility] Interpreted: Salty Daniel MD on 05/22/2017 ECG 12 Lead Sinus tach at [address] changes. Brief History History of present illness by Dr. Mccollum 05/19/2017 "37 year old male with hx of alcohol abuse presented to the ED via EMS after being found down, covered in black/red vomit and stool by his this morning. Pt regularly drinks 1/2 to a fifth of whiskey daily and reportedly has been for some time. There is very little information available and [facility] is similarly unhelpful. He does have a script for Ibuprofen. In any case, when EMS arrived they reported that the patient was hypotensive and sats were in the upper 70's. Due to hypoxia the patient was intubated in the field.on presentation to the ED the patient remained obtunded and hemoglobin returned at 5. He also looked dehydrated. He was transfused 5units PRBC's, 2 units FFP, and [address] Shin was contacted for emergent endoscopy. The patient was taken to the OR for the procedure and Dr. Shin reports that he identified dieulafoy in the proximal body of the stomach. Pt was also started on protonix and octreotide. He was admitted to the ICU intubated and sedated on propofol. No fentanyl at this time. Versed was initially attempted in the ED/OR but ineffective" Hospital Course Mr. Frank is a 37 male PMH EtOH abuse who was admitted for anemia 2/2/ upper GI bleed and acute hypoxic respiratory failure secondary to EtOH abuse - found down emersed in bloody emesis. He was subsequently intubated and transferred to the intensive care unit where he remained intubated for 3 days, following extubation he was transferred to the progressive critical care unit where he was monitored for the following conditions with eventual resolution and discharged to home in stable condition Severe Acute GI bleed -Patient found down with red/black emesis and stool -GI followed patient throughout hospital admission -Upper endoscopy showed dieulafoy lesion -Hx of severe Etoh abuse and NSAIDs -Hgb was 5 on admission -Octreotide and protonix drips, for 5 days each, course ending 05/24/2017, day of discharge -Hgb and Hct remained low throughout hospital stay but stable -Antibiotics were given for SBP prophylaxis, discontinued at discharge -Follow up with GI in 1-2 weeks Acute blood loss anemia -HGB/Hct as above, at time of discharge were trending upward Acute kidney injury -Likely due to acute blood loss and dehydration leading to prerenal azotemia -CK was elevated but less than 1000 -Creatinine normalized during hospital stay Severe anion gap metabolic acidosis and lactic acidosis -Elevated lactic acidosis with TAMMIE -Lactic acid and creatinine normalized prior to discharge Alcoholic hepatitis with cirrhosis -Elevated transaminases and alcoholic pattern and prolonged QT on admission -No sign of encephalopathy -Transaminases continued to trend down -Discriminant factor remains less than 32 -Counseled patient on alcohol cessation as well as appropriate pain medication use Hyperglycemia -No history of diabetes blood sugars 190+; most likely secondary to stress reaction -A1c 5.7 -Correctional scale insulin given while inpatient Alcohol dependence -Reportedly drinks half to a full fifth of whiskey a day -Librium 5 mg every 6 as needed, CIWA scores below 4 leading up to discharge -No sign of withdrawal -Thiamine given Acute hypoxic respiratory failure -Patient extubated 05/20/2017 -Maintained saturation on RA Elevated bilirubin. -Abdominal ultrasound suggests portal hypertension. Clinically patient is without signs or symptoms of cholecystitis, LFTs continue to improve -GI following and recommends outpatient HIDA scan Exam Vital Signs (Last) Date Time Temp Pulse Resp B/P Pulse Ox O2 Delivery O2 Flow Rate FiO2 05/24/17 08:31 Supplement Oxygen 05/24/17 08:20 36.7 80 114/71 97 05/24/17 02:47 20 05/21/17 08:30 2.00 05/20/17 15:39 30 Exam General: Awake and alert lying in hospital bed in no acute distress, well- developed, well-nourished, appropriately interactive HEENT: Normocephalic, atraumatic. External ears without defect. Pupils equal, round, and reactive to light and accommodation. Neck: Supple with full range of motion. No jugular venous distension. Cardiovascular: Regular rate and rhythm with no murmurs, rubs, or gallops appreciated Pulmonary: Clear to auscultation bilaterally with no crackles, wheezes, or rhonchi. Normal respiratory effort with no use of accessory muscles. Abdomen: Bowel tones present. Soft nontender palpated 4 quadrants Extremities: No clubbing, cyanosis, edema. Mild tremulousness in upper extremities Skin: Normal temperature, turgor, and texture Neurological: Cranial nerves grossly intact Psychiatric:. Alert and oriented to person, place, and time. Test 05/19/17 07:25 05/19/17 08:32 05/19/17 08:55 05/19/17 12:53 Activated Partial Thromboplast Time 31.5sec (22.8-33.0) Fibrinogen 151mg/dL (157-380) Magnesium Level 1.5mg/dL (1.6-2.6) Troponin T 0.010ug/L (0.0-0.011) Urine Color Yellow (YELLOW) Urine Appearance Cloudy (CLEAR,HAZY) Urine pH 5.0 (5.0-8.0) Urine Specific Hayden 1.025 (1.003-1.035) Urine Protein 100mg/dL (NEG,TRACE) Urine Glucose (UA) Negativemg/dL (NEGATIVE) Urine Ketones 15mg/dL (NEGATIVE) Urine Occult Blood Moderate (NEGATIVE) Urine Nitrite Negative (NEGATIVE) Urine Bilirubin Small (NEGATIVE) Urine Ictotest Pos (Negative) Urine Urobilinogen 2.0mg/dL (NORMAL) Urine Leukocyte Esterase Negative (NEGATIVE) Urine RBC 3-10/hpf (0-2) Urine WBC 0-5/hpf (0-5) Urine Epithelial Cells Occasional/hpf (NONE-MOD) Urine Crystals Amorphous urates (NONE Urine Bacteria Few/hpf (NONE-FEW) Urine Hyaline Casts Occasional/lpf (NONE) Urine Granular Casts None seen (NONE SEEN) Urine Waxy Casts None seen (NONE SEEN) Urine Red Blood Cell Casts None seen (NONE SEEN) Urine White Blood Cell Casts None seen (NONE SEEN) Urine Mucus Present (None Seen) Urine Trichomonas None seen (NONE SEEN) Urine Yeast None (NONE SEEN) Urinalysis Comment None Urine Culture Reflexed Not indicated Hold Purple Top Tube Received (Received) Hold [place] Top Tube Received (Received) Prothrombin Time 15.9sec (8.1-12.5) Prothromb Time International Ratio 1.47ratio Test 05/19/17 13:15 05/19/17 14:00 05/19/17 17:46 05/20/17 04:20 Urine Opiates Screen Negative Urine Methadone Screen Negative Urine Barbiturates Screen Negative Urine Amphetamines Screen Negative Urine Benzodiazepines Screen Positive Urine Cocaine Metabolite Screen Negative Urine Cannabinoids Screen Negative Alcohols < 10mg/dL (0-10) Total Creatine Kinase 984U/L (21-232) Hematology Comments Lactic Acid Level 1.4mmol/L (0.4-2.0) Test 05/20/17 11:45 05/22/17 04:20 05/23/17 04:30 Tumor Marker Alpha Fetoprotein 3.2ng/mL (0.0-8.3) Hemoglobin A1c 5.7% (4.8-5.6) White Blood Count 3.7th/mm3 (3.8-10.1) Red Blood Count 2.83mil/mm3 (4.40-5.80) Hemoglobin 8.0g/dL (13.8-17.2) Hematocrit 24.8% (41.0-50.0) Mean Corpuscular Volume 87.6fL (81-100) Mean Corpuscular Hemoglobin 28.3pg (27.0-35.0) Mean Corpuscular Hemoglobin Concent 32.3% (32.0-37.0) Red Cell Distribution Width 18.7% (12.3-15.4) Platelet Count 75bil/L (150-400) Neutrophils (%) (Auto) 52.3% (40-74) Lymphocytes (%) (Auto) 21.8% (14-46) Monocytes (%) (Auto) 22.9% (4-12) Eosinophils (%) (Auto) 1.9% (0-5) Basophils (%) (Auto) 0.3% (0-3) Sodium Level 136mEq/L (134-144) Potassium Level 4.2mEq/L (3.5-5.2) Chloride Level 103mEq/L (97-108) Carbon Dioxide Level 19mmol/L (18-29) Blood Urea Nitrogen 7mg/dL (6-20) Creatinine 0.55mg/dL (0.76-1.27) Estimat Glomerular Filtration Rate 176mL/min (>59) Glucose Level 121mg/dL (60-99) Calcium Level 7.8mg/dL (8.5-10.1) Total Bilirubin 4.3mg/dL (0.0-1.2) Aspartate Amino Transf (AST/SGOT) 278U/L (0-50) Alanine Aminotransferase (ALT/SGPT) 154U/L (0-44) Alkaline Phosphatase 114U/L (25-150) Total Protein 6.3g/dL (6.4-8.4) Albumin 3.3g/dL (3.4-5.0) Procalcitonin 0.15ng/mL (0.00-0.08) Discharge Medications Discharge Medications Pantoprazole DR (Protonix) 40 Mg Tablet 40 MG PO BID Prescribed by: LIZETTE VALENZUELA DO As needed Tramadol (Tramadol) 50 Mg Tablet 50 MG PO Q4H PRN PRN For Pain Prescribed by: LIZETTE VALENZUELA DO Disch Med Contraindications Statins Meds: Medication refused Followup Plan Disposition: Discharged to home in stable condition Follow-up plan Follow-up with primary care provider, will send referral to the residency clinic. Follow-up with gastroenterology in 1-2 weeks Discharge Diet: Heart Healthy Discharge Activity: No restrictions Patient Instructions You are being discharged with a medication called Protonix, please take 40 mg of this medication 2 times per day once in the morning and once in the evening. This is meant to help your gastric acid secretions which aggravate your stomach lining. As NSAID use such as ibuprofen aspirin Aleve etc. are famous for aggravating stomach ulcers/stomach bleeding from irritation I am strongly recommending to discontinue taking all of these types of medicines. As your liver has also been injured from alcohol use I am also recommending that you no longer take your acetaminophen (Tylenol). Given your history I think the safest medicine for you would be tramadol. I am prescribing you 50 mg tablets of this medication that you may take every 4 hours as needed for pain. I do caution you that this medication does have some addictive properties as well so please only use this medication as directed by the pharmacist and sparingly. Please refrain from operating heavy machinery or motor vehicles while starting this medication to ensure there are no adverse reactions. Please follow up with a primary care provider, we will try to schedule you an appointment at the [facility] residency clinic within the next week or two. Gastroenterology would also like you to see them within the next week or two regarding this hospital visit. Follow-up Provider: [facility] Res[facility] Follow-up with PCP in: 1 week Provider: Stef Shin MD Follow-up in: 2 weeks Time spent 45 minutes Attending Statement Patient has been seen and examined by myself with medical billing specialist and agree with above history, physical, assessment and plan. copies to: Stef Shin MD, GILES A DO May 24, 2017 11:08 Serena Forbes MD May 24, 2017 17:25
[2017-05-24] MEDS ORDERED: PANT40TA2 PO (11:29)
[2017-05-24] MEDS ORDERED: TRAM50TA2 PO (11:37)
--- NOTE | 2017-05-24 11:43 | PCM.DIMED ---
Discharge Instructions Date of Service May 24, 2017 Dates of Hospitalization May 19, 2017 at 09:47 Discharge Diagnosis Discharge Diagnosis Severe Acute GI bleed Acute blood loss anemia Acute kidney injury; POA Severe anion gap metabolic acidosis and lactic acidosis Alcoholic hepatitis with cirrhosis Hyperglycemia Alcohol dependence Acute hypoxic respiratory failure Elevated bilirubin Diet Discharge Diet: Heart Healthy Activity Discharge Activity: No restrictions Patient Instructions Patient Instructions You are being discharged with a medication called Protonix, please take 40 mg of this medication 2 times per day once in the morning and once in the evening. This is meant to help your gastric acid secretions which aggravate your stomach lining. As NSAID use such as ibuprofen aspirin Aleve etc. are famous for aggravating stomach ulcers/stomach bleeding from irritation I am strongly recommending to discontinue taking all of these types of medicines. As your liver has also been injured from alcohol use I am also recommending that you no longer take your acetaminophen (Tylenol). Given your history I think the safest medicine for you would be tramadol. I am prescribing you 50 mg tablets of this medication that you may take every 4 hours as needed for pain. I do caution you that this medication does have some addictive properties as well so please only use this medication as directed by the pharmacist and sparingly. Please refrain from operating heavy machinery or motor vehicles while starting this medication to ensure there are no adverse reactions. Please follow up with a primary care provider, we will try to schedule you an appointment at the [facility] residency clinic within the next week or two. Gastroenterology would also like you to see them within the next week or two regarding this hospital visit. Follow-up plan Follow-up with primary care provider, will send referral to the residency clinic. Follow-up with gastroenterology in 1-2 weeks Follow-up Provider: [facility] Follow-up with PCP in: 1 week Provider: Stef Shin MD Follow-up in: 2 weeks LIZETTE VALENZUELA DO May 24, 2017 11:43
[2017-05-24] MEDS: cefTRIAXone Inj 2,000 MG in Dextrose 5% Minibag Plus 50 ML IV SCH (11:45)
--- NOTE | 2017-05-24 13:22 | NUR ---
Discharge Pt discharged to home with transportation by his mother. Pt's PIV dc'd intact. PICC line removed by IV therapy RN. Pt's follow up appointments, new medications, and discharge instructions were reviewed. All questions were answered and pt voiced understanding. Pt's belongings gathered for transport home with pt. Pt was escorted off unit to his mother's vehicle by [place].
--- NOTE | 2017-05-24 17:26 | NUR ---
Social Work: Discharge/Multidisciplinary Rounds D: Pt discussed in multidisciplinary rounds; pt is medicaly stable for discharge. Capacity for self-care and d/c needs addressed. No concerns or needs identified. Pt has been I during admission. ENGINEERING TEST SPECIALIST met with the patient at bedside to confirm discharge plan and assess for unmet needs. He expresses no concerns about discharge and states that his mom is coming to pick him up. He has been ambulating during admission and participating in his own self-care. Pt confirms that he has a myra care application and knows to return it as soon as possible. Pt has the CD resources provided to him on 05/21 and sates that he still intends to follow up with AA meetings. A: Pt who is I at baseline and lives with his spouse. P: Pt to discharge home with no further d/c needs. SAUL Hewitt
== END 2017-05-24 13:00 | disposition home or self-care (01) | DRG 377 ==
LOC: SED 07:10 → EDBD 07:10 → CCU 09:47 → PCC 05-21 08:20
PROVIDERS: ADMIT Hospitalist; ATTEND Hospitalist
PROC: 5A1945Z Respiratory Ventilation, 24-96 Consecutive Hours (ICD-10-PCS; 2017-05-19)
PROC: 4A033R1 Measurement of Arterial Saturation, Peripheral, Percutaneous Approach (ICD-10-PCS; 2017-05-19)
PROC: 3E0G8GC Introduction of Other Therapeutic Substance into Upper GI, Via Natural or Artificial Opening Endoscopic (ICD-10-PCS; 2017-05-19)
PROC: 30233N1 Transfusion of Nonautologous Red Blood Cells into Peripheral Vein, Percutaneous Approach (ICD-10-PCS; 2017-05-19)
PROC: 30233K1 Transfusion of Nonautologous Frozen Plasma into Peripheral Vein, Percutaneous Approach (ICD-10-PCS; 2017-05-19)
PROC: 30233R1 Transfusion of Nonautologous Platelets into Peripheral Vein, Percutaneous Approach (ICD-10-PCS; 2017-05-19)
PROC: 0W3P8ZZ Control Bleeding in Gastrointestinal Tract, Via Natural or Artificial Opening Endoscopic (ICD-10-PCS; principal; 2017-05-19 10:00)
DX: K31.82 Dieulafoy lesion (hemorrhagic) of stomach and duodenum (principal); J96.01 Acute respiratory failure with hypoxia; N17.9 Acute kidney failure, unspecified; E87.2 Acidosis; E87.1 Hypo-osmolality and hyponatremia; K76.6 Portal hypertension; D62 Acute posthemorrhagic anemia; F17.210 Nicotine dependence, cigarettes, uncomplicated; K70.10 Alcoholic hepatitis without ascites; F10.20 Alcohol dependence, uncomplicated; K70.30 Alcoholic cirrhosis of liver without ascites; B35.4 Tinea corporis; K31.89 Other diseases of stomach and duodenum